=== PATIENT | male | born 1945 | race Caucasian/White ===

== ENCOUNTER 2023-10-27 06:33 | Day surgery (SDC) | payer OTHER, SELFPAY ==
[2023-10-27 08:20] VITALS: BMI 25.5
[2023-10-27 08:38] VITALS: BP 155/79
[2023-10-27 10:33] VITALS: BP 132/68
[2023-10-27 10:45] VITALS: BP 143/72
[2023-10-27 11:00] VITALS: BP 136/76
== END 2023-10-27 11:18 | disposition home or self-care (01) ==
LOC: GI 06:33
PROVIDERS: ATTENDING PHYSICIAN Internal Medicine Gastroenterology
DX: Z12.11 Encounter for screening for malignant neoplasm of colon (principal); D12.5 Benign neoplasm of sigmoid colon; K57.30 Diverticulosis of large intestine without perforation or abscess without bleeding; K64.8 Other hemorrhoids; R19.5 Other fecal abnormalities
CPT/HCPCS: 45380; 88305

== ENCOUNTER → 2024-06-18 10:42 | Outpatient (REF) | payer OTHER, SELFPAY | LOC: RAD 10:42 | PROVIDERS: ATTENDING PHYSICIAN Registered Nurse; FAMILY PHYSICIAN Internal Medicine Critical Care Medicine | DX: K59.00 Constipation, unspecified (principal); J44.9 Chronic obstructive pulmonary disease, unspecified | CPT/HCPCS: 71046; 74018 ==

== ENCOUNTER → 2024-09-14 08:38 | Outpatient (REF) | payer OTHER, SELFPAY | LOC: RAD 08:38 | PROVIDERS: ATTENDING PHYSICIAN Registered Nurse | DX: R10.11 Right upper quadrant pain (principal) | CPT/HCPCS: 74177; Q9967 ==

== ENCOUNTER 2024-10-29 16:49 | Inpatient (IN) | payer OTHER, SELFPAY ==
[2024-10-29] VITALS (8 sets, daily range): BP systolic 119–157; BP diastolic 57–78; BMI 24.4; BMI 24.1
[2024-10-29 12:24] LABS: Hematocrit 37.5 % (39.0-52.0); Hemoglobin 12.8 g/dL (13.0-18.0); Mean Corp Hgb Conc. 34.1 g/dL (33.0-37.0); Mean Corpuscular Hgb 28.8 pg (27.0-31.0); Mean Corpuscular Volume 84.5 fL (80.0-94.0); Mean Platelet Volume 8.3 fL (7.4-10.4); Platelet Count 415 10^3/uL (130-400); Red Blood Cell Count 4.44 10^6/uL (4.70-6.10); Red Cell Dist. Width 13.3 % (11.5-14.5)
[2024-10-29 12:28] LABS: ALT (SGPT) 23 U/L (0-50); AST (SGOT) 20 U/L (17-59); Alkaline Phosphatase 137 U/L (38-126); Blood Urea Nitrogen 15 mg/dl (9-20); Calcium 8.5 mg/dl (8.4-10.2); Carbon Dioxide 28 mmol/L (22-30); Chloride 91 mmol/L (98-107); Glucose 212 mg/dl (70-99); Potassium 4.5 mmol/L (3.5-5.1); Sodium 127 mmol/L (135-145); Total Bilirubin 1.1 mg/dl (0.2-1.3); Total Protein 5.9 g/dl (6.3-8.2); eGFR > 60.00
[2024-10-29 12:39] LABS: NT-proBNP 367 pg/ml; Troponin I < 0.012 ng/ml
[2024-10-29 12:58] LABS: % Basophils 0.3 % (0-2); % Lymphocytes 3.6 % (20.5-51.1); % Monocytes 3.6 % (1.7-9.3); % Neutrophils 91.5 % (42.2-75.2); Absolute Basophils 0.1 10^3/uL (0-0.2); Absolute Immature Granulocytes 0.2 10^3/uL (0-0.05); Absolute Lymphocytes 0.8 10^3/uL (1.2-3.4); Absolute Monocytes 0.8 10^3/uL (0.1-0.6); Absolute Neutrophils 20.1 10^3/uL (1.4-6.5); Nucleated Red Blood Cells % 0 % (-)
[2024-10-29] MEDS: DUONEB 3 ML INH ×2 (13:04→19:31)
--- NOTE | 2024-10-29 13:20 | ED.GENMED ---
History of Present Illness
General
Chief Complaint: Breathing Problem
Source: patient and spouse
Time Seen by Provider: 10/29/24 12:44
History of Present Illness
History of Present Illness:
79-year-old male with past medical history of COPD, CAD status postacute NC with CABG in March 2012, GERD, BPH presenting to the ER for evaluation after he started feeling short of breath 2 weeks ago, saw his primary care about 10 days ago who
started the patient on a steroid taper and antibiotics for presumed COPD exacerbation and states while he initially felt better for a couple of days over the last 48 to 72 hours he feels he has declined significantly. Patient states he has
continued cough that is nonproductive but wet sounding, fever this morning of 100.4 but did not take anything for the fever, no chest pain, abdominal pain, lower extremity edema or any other concerns. Patient states that he has oxygen at home but
is only using it as needed which she states he normally does not need to use. Social history was noted for former smoker but patient states has been many years since he did. Follows with crosstie inspector, Dr. Rodriguez.
Past History
Past History
ED Past Medical History: CAD, COPD, GERD, HTN, NC and Other (Sleep apnea, frequent urination, prostatic hypertrophy, arthritis, impaired vision, skin cancer.)
ED Past Surgical History: Cardiac, Urological and Other (Abdominal surgery for Meckel's diverticulum in 1999 he cornea transport 2008 skin cancer left cheek and 2008, CABG March 2012)
Social History
Tobacco: Former smoker
Alcohol: Occasional
Drug: None
Personal:
Living: with family
Employment: Retired
Review of Systems
Review of Systems
All Other Systems: ROS reviewed and negative except as documented in HPI and ROS
Phy Exam
Physical Exam
Physical Exam:
GENERAL: Alert , in no apparent distress
EYE: conjunctiva clear
NECK: Supple, no significant adenopathy.
ENT: o/p clr, mmm.
CARDIAC: Regular rate and rhythm
LUNGS: Rales bilateral bases, no wheezing, no acute respiratory distress, speaking full sentences, no accessory muscle use
NEUROLOGICAL: Alert and oriented
SKIN: Warm and dry, skin intact.
MUSCULOSKELETAL: well perfused. No edema
PSYCH: Normal and appropriate interaction.
Scores
Heart Failure Risk
Heart Failure Risk Score: Not Applicable
Heart Score for Chest Pain Patients
STEMI patient?: Not applicable
Withdrawal Assessment of Alcohol
Withdrawal Assessment Completed?: Not applicable
Course
Orders/Labs/Results
Orders:
Orders
10/29/24 11:44
Electrocardiogram (*1) Urgent
Reason for Study: Other
Other Reason for Exam: Respiratory Distress
Cardiac Monitoring- Treatment ONCE
EKG- Treatment ONCE
IV Insert/Care/Rem.- Treatment PRN
CR Chest - 2 Views Urgent
Comment:
Reason For Exam: respiratory distress
10/29/24 12:04
Complete Blood Count/With Diff Urgent
Comprehensive Metabolic Panel Urgent
NT-proBNP Urgent
Troponin I Urgent
10/29/24 12:50
Ipratropium/Albuterol Sulfate [Duoneb] 3 ml INH R NOW ONE
10/29/24 13:19
COVID-19 Antigen Urgent
Source: Nasal Swab
Lactic Acid Q4H
Comment: CANCEL 2nd LACTIC ACID IF 1st LACTIC ACID IS LESS THAN 2
Blood Culture Q30M
VINNY Source: Blood/Venous
Specimen Description:
Blood Culture Q30M
VINNY Source: Blood/Venous
Specimen Description:
Influenza A+B Rapid Molecular Urgent
VINNY Source: Nasal Swab
Specimen Description:
10/29/24 Dinner
Regular
At Your Request: Full Participation
Does patient need a safe tray?: No
10/29/24 15:21
Cefepime HCl [Maxipime] 2,000 mg IV NOW STA
10/29/24 16:05
Admit/Transfer Patient As Directed
Co-Sign Provider:
Level of Care: Inpatient admission
Assign to:: Medical/Surgical
Physician / Group: Lan Blair
Diagnosis: sepsis, pneumonia, hyponatremia
Reason for Hospitalization: sepsis, pneumonia, hyponatremia
Expected length of stay greater than two midnights?: Yes
ELOS- Estimated Length of Stay in days: 3
I certify the patient meets the requirements for IP care: Yes
10/29/24 16:06
PRN Pain Medication Management As Directed
May give lesser potent ordered pain med per pt: Yes
preference::
Protocol:: Medication orders for pain may be administered in a
manner that supports deferring to patient preference
when the pt is:
- Requesting an ordered lesser potent pain medication.
Least to most potent pain medications are defined
as: acetaminophen < NSAID < tramadol < opioids
(morphine, oxycodone, hydromorphone).
- Requesting a lesser dose of the same medication IF
ORDERED.
- Requesting a less intrusive route of administration
if both routes are prescribed by the provider (PO <
IV).
10/29/24 16:10
Code Status As Directed
Resuscitation Status: Full Code
10/29/24 16:14
Procalcitonin Urgent
PCT Algorithmm Indication: Respiratory
10/29/24 16:32
Legionella Urinary Antigen Urgent
VINNY Source: Urine
Specimen Description:
10/29/24 17:00
Lactic Acid Q4H
Comment: CANCEL 2nd LACTIC ACID IF 1st LACTIC ACID IS LESS THAN 2
10/29/24 18:15
0.9% Sodium Chloride 500 ml [Nss] 500 ml IV 40 mls/hr
Acetaminophen [Tylenol] 650 mg PO Q4HPRN PRN
Azithromycin [Zithromax] 250 mg PO MOWEFR
Calcium Carbonate [Oscal Celestine 500] 500 mg PO QPM
Cefepime HCl [Maxipime] 1,000 mg IV Q6H
Enoxaparin Sodium [Lovenox] 40 mg SC QPM
Ipratropium/Albuterol Sulfate [Duoneb] 3 ml INH R Q4HPRN PRN
Nitroglycerin Sublingual [Nitrostat (Sublingual)] 0.4 mg SL [id number] PRN
albuterol sulfate [ProAir RespiClick] 2 inh INH R Q4HPRN PRN
alpha lipoic acid 100 mg PO QPM
coenzyme Q10 [CoQ-10] 100 mg PO QPM
vanadyl 20 mg PO QPM
10/29/24 18:15
PULMONARY CONSULT Routine
Consulting Provider: Arash Mccrary
Was physician already notified: Yes
Respiratory Culture/Gram Stain Urgent
VINNY Source: Sputum
Specimen Description:
Activity As Directed
Activity Level: Out of Bed-Early Mobility
Intake/ Output As Directed
Frequency: Per unit guidelines
Vital Signs As Directed
Frequency: Per unit guidelines
Weight As Directed
Frequency: Once
Comment: on admission
Cpap [RESP] Routine
Patient to use own unit?: No
Set Pressure (cm H2O): 5
Instructions: HS & PRN
titrate settings as needed
O2 Therapy [RESP] Routine
Titrate/Wean O2 to maintain O2 sat greater than (%): 93
Special Instructions: Wean as tolerated
Pt Eval And Treat Routine
Activity Level: Out of Bed-Early Mobility
DX Deep Vein Thrombosis Video Routine
10/29/24 20:00
Albuterol Nebs [Ventolin Nebules] 2.5 mg INH R BID
Doxycycline [Vibramycin] 100 mg PO BID
Guaifenesin [Mucinex] 1,200 mg PO Q12
Ipratropium/Albuterol Sulfate [Duoneb] 3 ml INH R QID
Sodium Chloride 3% INH [Sodium Chloride 3% For Inhalation] DOSE vial INH R BID
10/30/24 06:00
Basic Metabolic Panel IN AM
Complete Blood Count/No Diff IN AM
10/30/24 08:00
Aspirin Low Dose EC [Aspir Low (Enteric Coated)] 81 mg PO DAILY
Atorvastatin [Lipitor] 40 mg PO DAILY
Budesonide [Pulmicort] 0.5 mg INH R DAILY
Fluorometholone [Fml 0.1% Ophthalmic Suspension] 1 drop BOTH EYES DAILY
Metoprolol Xl [Toprol Xl] 25 mg PO DAILY
Pantoprazole [Protonix] 40 mg PO DAILY
Prednisone [Deltasone] 10 mg PO DAILY
fluticasone propion-salmeterol 1 inh INH DAILY
tiotropium bromide [Spiriva Respimat] 1 puff INH R DAILY
Abnormal Lab Results
10/29/24
12:04
WBC 22.0 H 10^3/uL
(4.8-10.8)
RBC 4.44 L 10^6/uL
(4.70-6.10)
Hgb 12.8 L g/dL
(13.0-18.0)
Hct 37.5 L %
(39.0-52.0)
Plt Count 415 H 10^3/uL
(130-400)
Abs Immat Gran (auto) 0.2 H 10^3/uL
(0-0.05)
Absolute Neuts (auto) 20.1 H 10^3/uL
(1.4-6.5)
Absolute Lymphs (auto) 0.8 L 10^3/uL
(1.2-3.4)
Absolute Monos (auto) 0.8 H 10^3/uL
(0.1-0.6)
Immature Gran % 1.0 H %
(0-0.5)
Neutrophils % 91.5 H %
(42.2-75.2)
Lymphocytes % 3.6 L %
(20.5-51.1)
Sodium 127 L mmol/L
(135-145)
Chloride 91 L mmol/L
(98-107)
Glucose 212 H mg/dl
(70-99)
Alkaline Phosphatase 137 H U/L
(38-126)
Total Protein 5.9 L g/dl
(6.3-8.2)
Albumin 3.0 L g/dl
(3.5-5.0)
10/29/24 12:04
10/29/24 12:04
Vital Signs
Initial and Last Documented VS:
Initial Vital Signs
Temp Pulse Resp BP Pulse Ox
97.8 F 110 26 157/68 89
10/29/24 11:50 10/29/24 11:50 10/29/24 11:50 10/29/24 11:50 10/29/24 11:50
Last Documented Vital Signs
Temp Pulse Resp BP Pulse Ox
97.7 F 86 20 146/69 93
10/29/24 18:16 10/29/24 18:16 10/29/24 18:16 10/29/24 18:16 10/29/24 18:24
MDM/Problems Addressed
Differential Diagnosis Includes:
asthma/COPD, pneumonia, bronchitis, flu/covid, CHF
MDM/Problems Addressed:
79-year-old male presenting the ER for evaluation of increased respiratory difficulty over the last 2 weeks, initial mild improvement with steroid taper and antibiotics however symptoms returned and worsened over the last 72 hours. On arrival to
the ER patient was found to be hypoxic and placed on 2 L via nasal cannula and had good response with oxygen to the mid 90s and reports symptomatic relief. Labs were also initiated on arrival which show a leukocytosis of 22,000 which could
potentially be related to recent steroid use however there is a leftward shift. Patient has a mild hyponatremia so we will add on a Legionella antigen to assess for possible legionnaires. Chest x-ray ordered. Will treat patient with a DuoNeb and
plan for possible steroid and antibiotic for further treatment. Anticipate admission given failed outpatient treatment.
Chronic conditions affecting care: COPD
Acute Exacerbation and/or Progression of Chronic Illness: COPD
*Radiology
Radiology exam reviewed: preliminary read by ED provider (Right lower lobe pneumonia)
*Pulse Oximetry
Patient hypoxic: yes
*EKG
Heart Rate: 113
Rate: tachycardiac
Rhythm: sinus
Urich: left axis deviation
QRS Pattern: left bundle branch block and right bundle branch block
*Rod Drawer Interpretation
Rate: tachycardiac
Rhythm: sinus
*Critical Care Note
Total Time (30-74mins, 75-104mins- exclusive of procedures): Not Applicable
Data Reviewed
Review of Other/Old Records Reveals: Records and Testing
Patient Management
Discussion with other providers: Hospitalist
Escalation/DeEscalation of care consider admission/obs:
Patient's chest x-ray shows bilateral lower lung pneumonia. Given his failed outpatient treatment combined with now mild hypoxia and continued respiratory complications will admit for continued respiratory support as well as IV antibiotics. Given
patient's chronic medical conditions will initiate him on Maxipime. Hospitalist team aware and accepts for continued evaluation and treatment.
ED Attending Note
-
Portions of this chart may have been created with voice recognition software.� Occasional wrong word or��sound alike� substitutions may have occurred due to the inherent limitations of voice recognition software.
Discharge Plan
Departure
Patient Disposition: Admit
Date of Disposition: 10/29/24
Time of Disposition: 15:23
Presentation/result/management discussed w/ accepting MD/DO: Hospitalist
Discharge Problem:
Pneumonia, Acute exacerbation of chronic obstructive pulmonary disease
Interventions
Interventions:
*Risk Screen - Suicide Last Done: 10/29/24 11:50
*General Assessment Last Done: 10/29/24 16:22
*Neglect/Abuse Screening Last Done: 10/29/24 11:50
*ED- Fall Risk Assessment Last Done: 10/29/24 16:22
*ED COVID-19 Vaccine History Last Done: 10/29/24 16:22
*Nursing Disposition Last Done: 10/29/24 18:24
ED- Cardiac Assessment Last Done: 10/29/24 17:23
ED- Pulmonary Assessment Last Done: 10/29/24 17:23
Discharge Date and Time
Discharge Date/Time: 10/29/24 18:24
[2024-10-29 13:46] LABS: Lactic Acid 1.3 mmol/L (0.7-2.0)
[2024-10-29 13:53] LABS: COVID-19 Antigen Negative (Negative)
--- NOTE | 2024-10-29 15:25 | HPS.HSE ---
Family Physician
-
Family Physician:
Chief Complaint
-
cough and shortness of breath
History of Present Illness
Patient is a 79-year-old male with past medical history significant for COPD, bronchiectasis, ASCVD, hyperlipidemia, essential hypertension, pulmonary hypertension, sleep apnea and GERD who presented to [facility] ED for evaluation of
prolonged cough with increased shortness of breath. Patient reports symptoms started approximately 10 days ago or so and he felt it was similar to a COPD exacerbation that he has had in the past. He contacted his finisher brush and was prescribed a
12-day prednisone taper, last dose due tomorrow and 5 days of doxycycline. He reports initially feeling slightly better but yesterday felt lousy and last night he stated he felt 'terrible.' Patient reports productive cough, shortness of breath and
decreased SpO2 requiring oxygen. Patient does have oxygen in the home for PRN use but hardly needs it. He reports the past few days his SpO2 has been upper 80s and has been needing the oxygen. Patient reports known fever today at 100.4. Denies any
chills, chest pain, nausea, vomiting, constipation, diarrhea or urinary symptoms.
Medical History
Past Medical History
Past Medical History: Reports Other
Additional Past Medical History:
COPD
bronchiectasis
ASCVD
hyperlipidemia
essential hypertension
pulmonary hypertension
sleep apnea
GERD
Past Surgical History: Reports Other
Additional Past Surgical History:
TURP 2015
Cath w/Stent LAD Cx 01/2012
CABG x 1 (L Saph [place]) 2011
Corneal Transplant (Bilateral) 2011
Meckels diverticulum surgery 1964
Exploratory Laparotomy (Diverticular disease) w/ Appendectomy 1964
Moh's surgery x6
Social History
Tobacco: Former Smoker
Alcohol: None
Drug: None
Personal:
Living: With Family
Employment: Retired
Family History
Family History: Other (Father: COPD )
Allergies / Home Medications
Allergies reflects when Allergies were last updated in [employer].
Home Medications with original date entered in [employer]
Allergy/Medication List:
Allergies
Allergy/AdvReac Type Severity Reaction Status Date / Time
Sulfite Derivativ Allergy Shortness Verified 10/29/24 11:51
*RETIRED-04/21/12 of Breath
[Sulfite Derivatives]
SULFIDES Allergy BREATHING Uncoded 10/29/24 11:51
PROBLEMS
Home Medications
metoprolol succinate 25 mg tablet,extended release 24 hr 25 mg PO DAILY Blood pressure 10/21/14
pantoprazole 40 mg tablet,delayed release 40 mg PO DAILY Gastrointestinal issue 01/18/16
albuterol sulfate 2.5 mg/3 mL (0.083 %) solution for nebulization 2.5 mg inhalation R BID Lung/breathing issues 10/08/22
nitroglycerin 0.4 mg sublingual tablet 0.4 mg sublingual [id number] PRN chest pain 10/08/22
omega 0-tmc-fkh-fish oil 1,000 mg (120 mg-180 mg) capsule (Fish Oil) 1 cap PO QPM Supplement 10/08/22
aspirin 81 mg tablet,delayed release 81 mg PO DAILY #30 tabs 10/11/22
budesonide 0.5 mg/2 mL suspension for nebulization 0.5 mg inhalation R DAILY 10/27/23
Reservatrol 1 cap PO QPM 10/29/24
albuterol sulfate 90 mcg/actuation breath activated powder inhaler (ProAir RespiClick) 2 inh inhalation R Q4HPRN PRN SOB 10/29/24
alpha lipoic acid 100 mg capsule 100 mg PO QPM 10/29/24
atorvastatin 40 mg tablet 40 mg PO DAILY 10/29/24
azithromycin 250 mg tablet 250 mg PO MOWEFR 10/29/24
bromelains 100 mg chewable tablet 200 mg PO QPM 10/29/24
calcium carbonate 500 mg PO QPM 10/29/24
coenzyme Q10 100 mg capsule (CoQ-10) 100 mg PO QPM 10/29/24
fluorometholone 0.1 % eye drops,suspension 1 drp BOTH EYES DAILY 10/29/24
fluticasone 250 mcg-salmeterol 50 mcg/dose blistr powdr for inhalation 1 inh inhalation DAILY 10/29/24
losartan 50 mg-hydrochlorothiazide 12.5 mg tablet 1 tab PO DAILY 10/29/24
prednisone 10 mg tablet 10 mg PO DAILY 10/29/24
quercetin 500 mg capsule 500 mg PO QPM 10/29/24
sodium chloride 3 % for nebulization (NebuSal) 4 ml inhalation R BID 10/29/24
therapeutic multivitamin 1 tab PO QPM 10/29/24
tiotropium bromide 1.25 mcg/actuation mist for inhalation (Spiriva Respimat) 1 puff inhalation R DAILY 10/29/24
vanadyl 10 mg tablet 20 mg PO QPM 10/29/24
Review of Systems
-
History Source: Patient
Constitutional: Reports Fever
EENT: Reports No Symptoms
Respiratory: Reports Cough and Trouble Breathing
Cardiac: Reports No Symptoms
Abdomen/GI: Reports No Symptoms
: Reports No Symptoms
Musculoskeletal: Reports No Symptoms
Skin: Reports No Symptoms
Neurological: Reports No Symptoms
Endocrine: Reports No Symptoms
Hematologic/Lymphatic: Reports No Symptoms
Psych: Reports No Symptoms
Physical Exam
Vital Signs
Vital Signs
Temp Pulse Resp BP Pulse Ox
97.8 F 110 26 157/68 89
10/29/24 11:50 10/29/24 11:50 10/29/24 11:50 10/29/24 11:50 10/29/24 11:50
Physical Exam
General: Well Developed, Well Nourished, No Apparent Distress, Comfortable and Conversant
HEENT: NormoCephalic, Moist mucous membranes, Atraumatic, [place] Conjunctivae, Nose Appears Normal and Ears Appear Normal
Respiratory: Rhonchi and Non Labored Respirations
Cardiac: S1/S2, Regular Rhythm and Tachycardia; No Murmur, Rub or Gallop
Breast: Deferred by me
GI: Soft, Non Tender, Non Distended and Normal Bowel Sounds; No Organomegaly
Rectal: Deferred by Provider
Genito-urinary: Deferred by me
Musculoskeletal: No Clubbing, No Cyanosis and No Edema
Skin: Warm and IV/Catheter Site
Neuro: Awake, Alert, AO x 3 and Nonfocal/grossly intact
Psych: Calm and Intact Judgment/Insight
Laboratory Results
-
10/29/24 12:04
10/29/24 12:04
Laboratory Results
Lactic Acid 1.3 mmol/L (0.7-2.0) 10/29/24 13:19
Total Bilirubin 1.1 mg/dl (0.2-1.3) 10/29/24 12:04
AST 20 U/L (17-59) 10/29/24 12:04
ALT 23 U/L (0-50) 10/29/24 12:04
Alkaline Phosphatase 137 U/L (38-126) H 10/29/24 12:04
Troponin I < 0.012 ng/ml 10/29/24 12:04
Data Reviewed
-
Medical Tests (Nuc Med, Echo, EKG etc): Report Reviewed by me (EKG: SINUS TACHYCARDIA LEFT AXIS DEVIATION RIGHT BUNDLE BRANCH BLOCK)
Lab Data: Labs Reviewed by me (WBC 22.0, Neut 91.5, NA 127)
Impression/Plan
-
IMPRESSION/PLAN:
#sepsis 2/2 pneumonia
WBC 22.0, Neut 91.5
Covid: negative
Influenza: negative
CXR: Interval increase in bilateral lower lobe parenchymal airspace opacity, suggesting pneumonia. These findings are superimposed on changes of chronic bronchitis with bronchiectasis and diffuse bronchial wall
thickening seen on CT scan of September 14, 2024.
No evidence for associated pleural effusion.
Blood Cx: pending
Procal: pending
- Admit to telemetry
- Consult pulmonology
- IV antibiotics
- DuoNeb QID and PRN
- Mucinex BID
#hyponatremia
NA 127
- stop HCTZ
- NSS 40cc/hr for 500cc
- monitor BMP
#COPD
#bronchiectasis
- continue home HFA and neb regimen
- continue prednisone
#ASCVD
s/p CABG
- continue aspirin
#hyperlipidemia
- continue atorvastatin
#essential hypertension
- continue losartan and metoprolol
- stop HCTZ
#GERD
- continue pantoprazole
#sleep apnea
- CPAP at HS
#pulmonary hypertension
Code status: full code
DVT prophylaxis: Lovenox Sq
--- NOTE | 2024-10-29 15:53 | W.PN.UPDATE ---
Update Note
Progress Note Update
This note serves as an addendum to the H&P by hand cloth folder CHRISTOS Claudia Alvarez
HPI
79M Former smoker HX COPD, on PRN home O2, HTN, OH, CABG, CHELSEY , Hyponatremia, BPH impaired vision seen at [facility] for SoB
- SoB
- 10 days ago PCP started the patient on a steroid taper and antibiotics for presumed COPD exacerbation
- initially felt better for a couple of days over the last 48 to 72 hours he feels he has declined significantly
- Persistent nonproductive but wet sounding
- fever this morning of 100.4 but did not take anything for the fever
- Known to Dr Rodriguez
ROS
no chest pain, abdominal pain, lower extremity edema or any other concerns.
PHX; as above
VS
10/27/23
08:38
Temp 98.0 F
Temp route: Temporal
Pulse 80
Resp Rate 16
Blood pressure 155/79
SaO2 95
Oxygen Mode of Delivery Room air
PE
Gen: NAD , no acute respiratory distress, speaking full sentences,
HEENT: anicteric
Neck: supple
Lungs:
Rales bilateral bases
no wheezing
no accessory muscle use
Cor: RRR S1 S2
Abdomen: soft benign exam
OIL BOILER: AAO3 NFND
MS: no edema
Psych: appropriate
Labs
10/11/22 08/08/23 10/29/24
09:34 15:31 12:04
WBC 22.0 H
Hgb 13.4 12.8 L
Plt Count 252 415 H
Sodium 130 L 130 L 127 L
Potassium 4.5
Chloride 91 L
Creatinine 0.7
eGFR > 60.00
Glucose 212 H
Lactic Acid Pending
Troponin I < 0.012
[id number] Pept 367
Albumin 3.0 L
Procalcitonin pending
Pending Legion Ag
NEG flu A & B
NEG Covid
Pending CXR report
10/11/22 TTE
Normal biventricular size and systolic function without regional wall motion abnormality.
No significant valvular disease.
No significant change since the prior study of 11/12/21.
Last hospitalist admission: 10/08/22 - 10/11/22
DC DXs
Acute hypoxic respiratory insufficiency
Bilateral basilar pneumonia
Bronchiectasis
Hyponatremia, we stopped hydrochlorothiazide.
ASSESSMENT & PLAN
PNA failed outpatient PO ABx with break through fever
Currently not bronchospastic : Recent COPD flare on tapering PO Prednisone- last dos tomorrow
Acute hypoxic RI but stable on 2L
On Home O2 only PRN basis
Known to Dr Rodriguez
- NEG flu A & B
- NEG Covid
- Pending Legion Ag
- BCx sent
- check PCT
- f/u final CXR report
- Agree with IV CFP , cont. OP PO Doxy
- c/w PO Prednisone taper as plan by OP
- add DuoNeb qid and PRN
- Mucinex 1200mg BID
- c/w all OP Resp Meds;
- supplemental O2 PRN to keep POx > 94 %
- Pul consult
Leucocytosis
Suspect leukemoid reaction to PO Prednisone
- f/u BCx
- Trend WCC and T curve
Acute on chr hyponatremia with hypochloremia
Element of pseudohyponatremia - corrected Na 129 for BG 212
Baseline Na 130
- Hold HCTZ combo pill
- c/w DIRECTOR IN[employer]OR [employer]ATIONS Losartan
- IV NS 40/H for 500 cc and observe Na then FR 1200 cc daily
Benign HTN
- c/w Losartan
- c/w Metoprolol XL
HLD
- c/w [employer] ASA and Atorvastatin
DVT Px: LMWH
Full code
IP MS
[2024-10-29] MEDS: MAXIPIME 2000 MG IV (16:16)
[2024-10-29 17:40] LABS: Procalcitonin 0.16 ng/ml (0.0-0.25)
[2024-10-29] MEDS: SODIUM CHLORIDE 3% FOR INHALATION 1 VIAL INH (19:31)
[2024-10-29] MEDS: ADVAIR HFA 115/21 MCG INHALER 2 PUFF INH (19:31)
[2024-10-29] MEDS: MUCINEX 1200 MG PO (19:42)
[2024-10-29] MEDS: NSS 500 IV (19:42)
[2024-10-29] MEDS: OSCAL CAL 500 500 MG PO (19:42)
[2024-10-29] MEDS: LOVENOX 40 MG SC (19:42)
[2024-10-29] MEDS: VIBRAMYCIN 100 MG PO (19:43)
[2024-10-29] MEDS: TESSALON PERLES 100 MG PO (22:00)
[2024-10-29] MEDS: STERILE WATER FOR INJECTION 10 ML IV (22:00)
[2024-10-29] MEDS: MAXIPIME 1000 MG IV (22:00)
[2024-10-30] MEDS: TESSALON PERLES 100 MG PO (02:07)
[2024-10-30] MEDS: MELATONIN 5 MG PO (02:07)
[2024-10-30] MEDS: MAXIPIME 1000 MG IV ×4 (04:21→23:09)
[2024-10-30] MEDS: STERILE WATER FOR INJECTION 10 ML IV ×4 (04:21→23:10)
[2024-10-30] MEDS: TYLENOL 650 MG PO (04:30)
[2024-10-30 07:11] LABS: Hematocrit 33.2 % (39.0-52.0); Hemoglobin 11.7 g/dL (13.0-18.0); Mean Corp Hgb Conc. 35.2 g/dL (33.0-37.0); Mean Corpuscular Hgb 29.9 pg (27.0-31.0); Mean Corpuscular Volume 84.9 fL (80.0-94.0); Mean Platelet Volume 8.4 fL (7.4-10.4); Platelet Count 371 10^3/uL (130-400); Red Blood Cell Count 3.91 10^6/uL (4.70-6.10); Red Cell Dist. Width 13.4 % (11.5-14.5); White Blood Cell Count 18.8 10^3/uL (4.8-10.8)
[2024-10-30 07:36] LABS: Blood Urea Nitrogen 19 mg/dl (9-20); Calcium 8.5 mg/dl (8.4-10.2); Carbon Dioxide 26 mmol/L (22-30); Chloride 95 mmol/L (98-107); Estimated Creatinine Clearance 101 ml/min; Glucose 124 mg/dl (70-99); Potassium 4.1 mmol/L (3.5-5.1); Sodium 129 mmol/L (135-145); eGFR > 60.00
[2024-10-30] MEDS: DUONEB 3 ML INH ×4 (07:46→20:50)
[2024-10-30] MEDS: ADVAIR HFA 115/21 MCG INHALER 2 PUFF INH ×2 (07:46→20:50)
[2024-10-30] MEDS: PULMICORT 0.5 MG INH ×2 (07:46→20:50)
[2024-10-30] MEDS: SODIUM CHLORIDE 3% FOR INHALATION 1 VIAL INH ×2 (07:46→20:55)
[2024-10-30 08:16] VITALS: BP 135/64
[2024-10-30] MEDS: MUCINEX 1200 MG PO ×2 (09:03→19:33)
[2024-10-30] MEDS: ASPIR LOW (ENTERIC COATED) 81 MG PO (09:03)
[2024-10-30] MEDS: TOPROL XL 25 MG PO (09:03)
[2024-10-30] MEDS: VIBRAMYCIN 100 MG PO ×2 (09:03→19:33)
[2024-10-30] MEDS: LIPITOR 40 MG PO (09:03)
[2024-10-30] MEDS: DELTASONE 10 MG PO (09:03)
[2024-10-30] MEDS: PROTONIX 40 MG PO (09:03)
[2024-10-30] MEDS: FML 0.1% OPHTHALMIC SUSPENSION 1 DROP BOTH EYES (09:04)
--- NOTE | 2024-10-30 11:07 | W.PN.HOSP.TC ---
Today's Communication/Plan
-
await further culture data
cont w/bronchodilators
cont prednisone
Pulm eval
Assessment / Plan
Assessment / Plan
#sepsis 2/2 pneumonia viral vs. bacterial
COVID and influenza and legionella negative
CXR: Interval increase in bilateral lower lobe parenchymal airspace opacity, suggesting pneumonia. These findings are superimposed on changes of chronic bronchitis with bronchiectasis and diffuse bronchial wall
thickening seen on CT scan of September 14, 2024.
No evidence for associated pleural effusion.
Blood Cx in lab
Procal low at 0.16
- Consult pulmonology as known to them
- Cont IV antibiotics for 24h and can probably descalate if cultures remains negative
- DuoNeb QID and PRN
- Mucinex BID
#hyponatremia
NA 127
- stop HCTZ
- improving
#Leukomoid reaction due to prednisone
#COPD
#bronchiectasis
- continue home HFA and neb regimen
- continue prednisone
#ASCVD
s/p CABG
- continue aspirin
#hyperlipidemia
- continue atorvastatin
#essential hypertension
- continue losartan and metoprolol
- stop HCTZ
#GERD
- continue pantoprazole
#sleep apnea
- CPAP at HS
#pulmonary hypertension
Code status: full code
DVT prophylaxis: Lovenox Sq
Anticipated Discharge: > 48 hours
Subjective/Interval History
-
Date of Service: October 30, 2024
states of persistent sob
states of dry cough
Objective Data
-
Labs:
Laboratory Results
10/30/24
06:45
WBC 18.8 H
Hgb 11.7 L
Hct 33.2 L
Plt Count 371
Sodium 129 L
Potassium 4.1
Chloride 95 L
Carbon Dioxide 26
BUN 19
Creatinine 0.6 L
Glucose 124 H
Calcium 8.5
Vital Signs:
Vital Signs
Temp Pulse Resp BP Pulse Ox
97.5 F 87 18 135/64 95
10/30/24 08:16 10/30/24 09:03 10/30/24 08:16 10/30/24 09:03 10/30/24 08:16
I&O
10/29/24 10/30/24 10/31/24
06:59 06:59 06:59
Intake Total 980 / 980 480 / 480
Balance 980 / 980 480 / 480
Physical Exam
-
General: Well Developed and No Apparent Distress
HEENT: Normocephalic, Atraumatic and Moist Mucous Membranes
Respiratory: Decreased Breath Sounds
Cardiac: Regular Rhythm and S1/S2; Negative Murmur, Rub or Gallop
GI: Soft, Nontender, Nondistended and Normal Bowel Sounds; Negative Organomegaly
Rectal: Deferred by Provider
Musculoskeletal: No Clubbing, No Cyanosis and No Edema
Skin: Negative Rash
Neuro: Awake, No Motor Deficits and Nonfocal/Grossly Intact
Psych: Calm
[2024-10-30 11:56] VITALS: BP 129/69; BP 139/66; PULSE 95; O2SAT 91
--- NOTE | 2024-10-30 13:30 | CON.PUL ---
Consultation
Consultation Request
Date/Time Consultation Requested: 10/29/2024 - 1814
Date/Time Consultation Performed: 10/30/2024 - 1220
Requesting Provider: LEON Bear
Performing Provider: Dr. Helton
Reason for Consultation: SOB/Hx of bronchiectasis
Medical History
-
Chief Complaint: SOB
History of Present Illness:
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
surgery, history of pneumonia, and history of Amaya's esophagus with Schatzki's ring and hiatal hernia who presents with shortness of breath. He says that he has been more short of breath since around the middle of October (approximately
10/16/2024). He went to [facility] office and saw LEON Douglass on 10/19/2024. At that time, he was on Advair, Spiriva, 3% saline, nebulized albuterol, budesonide and Acapella. He was told to raise his budesonide + albuterol to twice a day. He
also uses vest therapy and was encouraged to use twice daily instead of once. He was more short of breath with worsening mucus production at that office visit on 10/19/2024 and was given a course of doxycycline with a prednisone taper.
Unfortunately his symptoms progressed and that is why he came here to ER. In the ER, he was afebrile to 97.8 �F, pulse rate 110, respiratory rate 26, BP 157/68 and he was saturating 89% on room air. Saturations proved to the mid 90s on 2 L/min
nasal cannula. Of note he does use oxygen at home as needed, usually 3 L/min. Labs showed leukocytosis of 22, Hb 12.8, sodium 127, glucose 212, proBNP 367 and negative troponin X1. Procalcitonin was WNL at 0.16 and COVID-19 antigen negative. CXR
showed worsening bibasilar opacification concerning for an superimposed pneumonia. Blood cultures were collected and flu swab A & B were both negative. CXR showed increased bilateral lower lobe parenchymal airspace opacities suggestive of
pneumonia. He was given cefepime in the ER + Gokul and admitted to the hospitalist service. Pulmonary now consulted given his shortness of breath with pneumonia given his history of severe COPD with bronchiectasis/chronic bronchitis.
He follows with us in the [facility] office with Dr. Rodriguez - last visit with Dr. Rodriguez on 06/16/2024. His last CT chest was in October 2020 (PE study) which showed moderate stable bronchiectasis throughout the lower lobes with no superimposed acute
abnormalities. He was told to continue his auto CPAP. He is also on home oxygen at 4 L/min using as needed. He was started on 3 times weekly Zithromax in April 2024. Recommend to come back to the office in 4 to 6 weeks (scheduled for
11/23/2024).
PMHx: CHELSEY on BiPAP, severe COPD with chronic bronchitis + bronchiectasis, GERD, chronic rhinitis, lung nodules, pulmonary hypertension, history of SC s/p CABG with prior stenting to LAD, hypertension, hyperlipidemia, history of Amaya's esophagus
with Schatzki's ring and hiatal hernia, basal cell carcinoma of the skin, Meckel's diverticulum (1964), history of pneumonia
PSHx: TURP (2016), coronary stent to LAD (01/2012), CABG X1 (left saphenous vein harvest � 2011), corneal transplant (bilateral � 2011), Meckel's diverticulum surgery (1964), exploratory laparotomy due to diverticular disease with appendectomy
(1964), Mohs procedure x 6
Past Medical History
Past Medical History: Other (Above as per HPI)
Past Surgical History: Other (Above as per HPI)
Social History
Tobacco: Former Smoker (Quit in 2011 with 09-chiy-ghhe history)
Alcohol: Other (Rare use)
Drug: None
Personal:
Living: With Family
Family History
Family History: Cancer (Father: Lymphoma) and Other (Father: Colon polyp; mother: Glaucoma)
Allergies / Home Medications
Allergies
Allergy/AdvReac Type Severity Reaction Status Date / Time
sulfite Allergy SOB- Verified 10/29/24 18:19
SULFITES
IN WINE
Home Medications
�Medication �Instructions �Recorded �Confirmed �Last Taken �Type
metoprolol succinate 25 mg 25 mg PO DAILY Blood pressure 10/21/14 10/29/24 10/29/24 History
tablet,extended release 24 hr
pantoprazole 40 mg tablet,delayed 40 mg PO DAILY Gastrointestinal 01/18/16 10/29/24 10/29/24 History
release issue
albuterol sulfate 2.5 mg/3 mL 2.5 mg inhalation R BID 10/08/22 10/29/24 10/29/24 History
(0.083 %) solution for nebulization Lung/breathing issues
nitroglycerin 0.4 mg sublingual 0.4 mg sublingual [id number] PRN 10/08/22 10/29/24 Unknown History
tablet chest pain
omega 3-ost-tff-fish oil 1,000 mg 1 cap PO QPM Supplement 10/08/22 10/29/24 10/28/24 History
(120 mg-180 mg) capsule (Fish Oil)
aspirin 81 mg tablet,delayed 81 mg PO DAILY #30 tabs 10/11/22 10/29/24 10/29/24 Rx
release
budesonide 0.5 mg/2 mL suspension 0.5 mg inhalation R DAILY 10/27/23 10/29/24 10/29/24 History
for nebulization
Reservatrol 1 cap PO QPM 10/29/24 10/29/24 10/28/24 History
albuterol sulfate 90 mcg/actuation 2 inh inhalation R Q4HPRN PRN SOB 10/29/24 10/29/24 Unknown History
breath activated powder inhaler
(ProAir RespiClick)
alpha lipoic acid 100 mg capsule 100 mg PO QPM 10/29/24 10/29/24 10/28/24 History
atorvastatin 40 mg tablet 40 mg PO DAILY 10/29/24 10/29/24 10/29/24 History
azithromycin 250 mg tablet 250 mg PO MOWEFR 10/29/24 10/29/24 10/29/24 History
bromelains 100 mg chewable tablet 200 mg PO QPM 10/29/24 10/29/24 10/28/24 History
calcium carbonate 500 mg PO QPM 10/29/24 10/29/24 10/28/24 History
coenzyme Q10 100 mg capsule 100 mg PO QPM 10/29/24 10/29/24 10/28/24 History
(CoQ-10)
fluorometholone 0.1 % eye 1 drp BOTH EYES DAILY 10/29/24 10/29/24 10/29/24 History
drops,suspension
fluticasone 250 mcg-salmeterol 50 1 inh inhalation DAILY 10/29/24 10/29/24 10/29/24 History
mcg/dose blistr powdr for
inhalation
losartan 50 mg-hydrochlorothiazide 1 tab PO DAILY 10/29/24 10/29/24 10/29/24 History
12.5 mg tablet
prednisone 10 mg tablet 10 mg PO DAILY 10/29/24 10/29/24 10/29/24 History
quercetin 500 mg capsule 500 mg PO QPM 10/29/24 10/29/24 10/28/24 History
sodium chloride 3 % for 4 ml inhalation R BID 10/29/24 10/29/24 10/29/24 History
nebulization (NebuSal)
therapeutic multivitamin 1 tab PO QPM 10/29/24 10/29/24 10/28/24 History
tiotropium bromide 1.25 1 puff inhalation R DAILY 10/29/24 10/29/24 10/29/24 History
mcg/actuation mist for inhalation
(Spiriva Respimat)
vanadyl 10 mg tablet 20 mg PO QPM 10/29/24 10/29/24 10/28/24 History
diphenhydramine 25 1 tab PRN insomnia 10/30/24 Unknown History
mg-acetaminophen 500 mg tablet
(Tylenol PM Extra Strength)
Review of Systems
-
History Source: Patient
All other systems: Negative unless noted
Vitals / Labs / Diagnostic Testing
Vital Signs
Temp Pulse Resp BP Pulse Ox
99.9 F 89 16 137/72 96
10/29/24 23:50 10/29/24 23:50 10/29/24 23:50 10/29/24 23:50 10/29/24 23:50
Lab Data
10/30/24 06:45
10/30/24 06:45
Microbiology
10/29/24 16:32 Urine Legionella Urinary Antigen - Final
Negative for Legionella pneumophila Serogroup 1 antigen.
A negative result does not rule out the possiblity of
Legionella infection due to other serogroups or species of
Legionella. Clinical correlation is recommended.
10/29/24 13:19 Nasal Swab Influenza Types A & B (KWAME) - Final
Negative for Influenza A & B, NAAT
Negative results must be combined with clinical observations
and patient history.
Nucleic Acid Amplification test (NAAT)performed on the
in2nite ID NOW platform.
Diagnostic Testing:
Physical Exam
-
HEENT: Normocephalic and Anicteric
Cardiovascular: S1/S2 and Peripheral Edema (Trace lower extremity edema bilaterally)
Respiratory: Wheeze (negative), Rales (negative), Rhonchi (Bilaterally mainly in the lower to middle lobes) and Non-Labored Respirations
GI: Soft, Non Distended, Non Tender and Normal Bowel Sounds
Neurology: AO x 3 and Tremors (negative)
Skin: Warm and Dry
General: Respiratory Distress (negative), Comfortable, Fever (negative) and Chills (negative)
Assessment
-
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
surgery, history of pneumonia, and history of Amaya's esophagus with Schatzki's ring and hiatal hernia who presents with shortness of breath. He has been having shortness of breath with increased mucus production since 10/16/2024. Saw pulmonary
in the office on 10/19/2024, with adjustments of his inhalers + vest therapy instructions, and also given a course of doxycycline + prednisone taper. He unfortunately continued to worsen after a few days and then came here to the ER where he was
found to have a lower lobe pneumonia. Antibiotics were started and he was admitted to the hospitalist service, and pulmonary is now consulted for additional management/recommendations.
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
Amaya's esophagus with Schatzki's ring and hiatal hernia, basal cell carcinoma of the skin, Meckel's diverticulum (1964), history of pneumonia
Impression:
#Bilateral pneumonia with a bronchiectasis flare
#Acute COPD exacerbation
#Acute on chronic respiratory failure with hypoxia due to above
#Leukocytosis due to sepsis from pneumonia
#Acute on chronic anemia (baseline Hb 13�14g/dL)
#Chronic hyponatremia
#History of GERD with Schatzki's ring and hiatal hernia
#History of CHELSEY on BiPAP 12/8 cmH2O
#Severe COPD with chronic bronchitis and bronchiectasis (PFT from 02/07/2021 showed a severe obstructive lung defect with significant bronchodilator response, moderate restriction with severe gas exchange capacity defect (DLco: 31%; DLco/VA: 56%; most
recent spirometry from 10/19/2024 shows a mixed severe obstructive lung defect with severe restriction with significant BD response)
#Moderate restrictive lung defect (T% predicted, VC: 54% predicted via PFTs from 02/07/2021)
#Former tobacco use with mild centrilobular emphysema predominantly in the upper lobe
#CAD s/p stenting to LAD + CABG
#Former tobacco smoker (quit in 2011 with 68-[id number]-nbfz history)
Plan:
- Based on CXR from 10/21/2024, it appears that his bibasilar chronic bronchitis/opacification has worsened suspicious for a superimposed pneumonia. He also has significant leukocytosis although his procalcitonin is WNL at 0.16 from 10/29/2024
- Agree with continued antibiotics with cefepime + doxycycline; please hold his usual Zithromax TIW for now
- Follow-up infectious workup to currently, blood cultures drawn 10/29/2024 show NGTD; Legionella urine antigen negative
- Check sputum culture if he can produce a decent sample and also check strep pneumonia urine antigen
- Start systemic steroids with Solumedrol 40mg IV q8hr --> will start to wean as he clinically improves with eventual prednisone taper
- Re-check CXR tomorrow to assure there are no areas of mucous plugging
- Pulmonary toilet is ribera
-Recommend to start vest therapy as well as nebulized 3%; continue with budesonide but raise to BID (which he was rec'd to use at home at last office visit), continue Advair 115mcg BID and DuoNebs QID
- Mucolytics with mucinex
- Maintain SpO2 88-95% with supplemental O2 and wean down as tolerated back to his home O2 dose, if possible (he says he uses 3L/min as needed, but now he is on 2L/min ATC currently
- prn nebulized bronchodilators - not currently bronchospastic
- Continue with BiPAP 12/8cmH2O (which are his home settings) with sleep
- Incentive spirometer encouraged q1hr while awake (as tolerated)
- Replete electrolytes with K>4, Mg>2
- Trend H/H and transfuse if needed to keep Hb>7g/dL; keep plt>20k, unless there is concern for bleeding then keep plt>50k
- Maintain euglycemia with goal BG >100 and <180 especially while on high-dose steroid
- DVT ppx: LMWH
Pulmonary service will continue to follow along. Recommend him to continue following up with us in the office; he actually already has a follow-up scheduled with LEON Douglass on 11/23/2024 at 10:30 AM. Of note, last visit with Dr. Rodriguez
was on 06/16/2024.
Data:
CXR 10/29/2024:
Interval increase in bilateral lower lobe parenchymal airspace opacity, suggesting pneumonia. These findings are superimposed on changes of chronic bronchitis with bronchiectasis and diffuse bronchial wall thickening seen on CT scan of September 14,
2024.
No evidence for associated pleural effusion.
Total time spent today was 58 minutes for this encounter. Time includes reviewing laboratory test/imaging results, reviewing pertinent medical records, obtaining and reviewing medical history, performing an appropriate exam, ordering medications,
tests and procedures. Time also includes documentation of this encounter, coordinating patient care and communicating with other healthcare professionals. Total time does not include separately billed tests performed on this date of service.
[2024-10-30 15:47] VITALS: BP 160/75
--- NOTE | 2024-10-30 16:07 | CM ---
Patient seen bedside, initial assessment completed. Patient is a 79-year-old male with past medical history significant for COPD, bronchiectasis, ASCVD, hyperlipidemia, essential hypertension, pulmonary hypertension, sleep apnea and GERD who
presented to [facility] ED for evaluation of prolonged cough with increased shortness of breath.
Patient reports that he resides w/ spouse in [place]- 2 steps to enter the home. Patient is independent w/ ambulation, no device required. Independent w/ ADLs. Patient has home O2 (2-3L), uses as needed, doesn't recall the supplier. Patient has
additional shower chair in the home. Denies SNF/HC hx. OP therapy in the past. No current home or OP services at this time.
Address, point of contact and insurance verified
PCP: Félix Anaya
Pharmacy: [facility]
Therapy assessed patient and is currently recommending home PT at d/c. CM to confirm a provider w/ patient and complete referral prior to d/c.
Plan: Home w/ HC
[2024-10-30] MEDS: SOLU-MEDROL PF 40 MG IV ×2 (16:44→23:10)
[2024-10-30] MEDS: LOVENOX 40 MG SC (18:28)
[2024-10-30] MEDS: OSCAL CAL 500 500 MG PO (18:29)
[2024-10-30 22:31] VITALS: PULSE 87
[2024-10-30 23:56] VITALS: BP 152/73
[2024-10-31] MEDS: MAXIPIME 1000 MG IV ×4 (04:20→22:27)
[2024-10-31] MEDS: STERILE WATER FOR INJECTION 10 ML IV ×4 (04:20→22:27)
[2024-10-31 06:40] LABS: % Basophils 0.2 % (0-2); % Immature Granulocytes 0.8 % (0-0.5); % Lymphocytes 10.9 % (20.5-51.1); % Monocytes 1.3 % (1.7-9.3); % Neutrophils 86.8 % (42.2-75.2); Absolute Immature Granulocytes 0.1 10^3/uL (0-0.05); Absolute Lymphocytes 1.3 10^3/uL (1.2-3.4); Absolute Monocytes 0.2 10^3/uL (0.1-0.6); Absolute Neutrophils 10.3 10^3/uL (1.4-6.5); Hematocrit 35.3 % (39.0-52.0); Hemoglobin 11.9 g/dL (13.0-18.0); Mean Corp Hgb Conc. 33.7 g/dL (33.0-37.0); Mean Corpuscular Hgb 28.6 pg (27.0-31.0); Mean Corpuscular Volume 84.9 fL (80.0-94.0); Mean Platelet Volume 8.6 fL (7.4-10.4); Nucleated Red Blood Cells % 0 % (-); Platelet Count 420 10^3/uL (130-400); Red Blood Cell Count 4.16 10^6/uL (4.70-6.10); Red Cell Dist. Width 13.1 % (11.5-14.5); White Blood Cell Count 11.9 10^3/uL (4.8-10.8)
[2024-10-31 07:00] VITALS: BP 159/86
[2024-10-31 07:07] LABS: Blood Urea Nitrogen 17 mg/dl (9-20); Calcium 9.2 mg/dl (8.4-10.2); Carbon Dioxide 26 mmol/L (22-30); Chloride 96 mmol/L (98-107); Estimated Creatinine Clearance 101 ml/min; Glucose 180 mg/dl (70-99); Potassium 4.5 mmol/L (3.5-5.1); Sodium 132 mmol/L (135-145); eGFR > 60.00
[2024-10-31] MEDS: ADVAIR HFA 115/21 MCG INHALER 2 PUFF INH ×2 (08:10→19:41)
[2024-10-31] MEDS: DUONEB 3 ML INH ×4 (08:10→19:42)
[2024-10-31] MEDS: PULMICORT 0.5 MG INH ×2 (08:10→19:42)
[2024-10-31] MEDS: SODIUM CHLORIDE 3% FOR INHALATION 1 VIAL INH ×3 (08:10→19:42)
[2024-10-31] MEDS: PROTONIX 40 MG PO (09:51)
[2024-10-31] MEDS: VIBRAMYCIN 100 MG PO ×2 (09:51→20:34)
[2024-10-31] MEDS: MUCINEX 1200 MG PO ×2 (09:51→20:34)
[2024-10-31] MEDS: FML 0.1% OPHTHALMIC SUSPENSION 1 DROP BOTH EYES (09:52)
[2024-10-31] MEDS: TOPROL XL 25 MG PO (09:52)
[2024-10-31] MEDS: LIPITOR 40 MG PO (09:52)
[2024-10-31] MEDS: ASPIR LOW (ENTERIC COATED) 81 MG PO (09:52)
[2024-10-31] MEDS: SOLU-MEDROL PF 40 MG IV ×2 (09:53→17:50)
--- NOTE | 2024-10-31 10:36 | W.PN.HOSP.TC ---
Today's Communication/Plan
-
Continue with IV steroids
Continue with IV antibiotic
Wean oxygen as tolerated
Continue with bronchodilators
Assessment / Plan
Assessment / Plan
#sepsis 2/2 pneumonia viral vs. bacterial
COVID and influenza and legionella negative
CXR today w/improvement in infiltrate
Blood Cx in lab neg so far
Procal low at 0.16
- Consult pulmonology as known to them
- Cont IV antibiotics w/cefepime and doxy. Holding chronic azithromycin
#hyponatremia
NA 127
- stop HCTZ
- improving to 132
#Leukemoid reaction due to steroids
#AECOPD
#bronchiectasis
#Acute hypoxic Respiratory insufficiency likely combination of COPD exacerbation and pneumonia
- continue home HFA and neb regimen
- DuoNeb QID and PRN, Advair, hypertonic nebulizer
-Mucinex BID
-Continue w/solumedrol 40mg q12h. Vest therapy.
-Pulm following
#ASCVD
s/p CABG
- continue aspirin
#hyperlipidemia
- continue atorvastatin
#essential hypertension
- continue losartan and metoprolol
- stop HCTZ
#GERD
- continue pantoprazole
#sleep apnea
- CPAP at HS
#pulmonary hypertension
Code status: full code
DVT prophylaxis: Lovenox Sq
Anticipated Discharge: > 48 hours
Subjective/Interval History
-
Date of Service: October 31, 2024
states breathing remains same
now with intermittent productive cough
Objective Data
-
Labs:
Laboratory Results
10/31/24
06:23
WBC 11.9 H
Hgb 11.9 L
Hct 35.3 L
Plt Count 420 H
Sodium 132 L
Potassium 4.5
Chloride 96 L
Carbon Dioxide 26
BUN 17
Creatinine 0.6 L
Glucose 180 H
Calcium 9.2
Vital Signs:
Vital Signs
Temp Pulse Resp BP Pulse Ox
97.4 F 80 16 159/86 94
10/31/24 07:00 10/31/24 09:52 10/31/24 08:33 10/31/24 09:52 10/31/24 08:13
I&O
10/30/24 10/31/24 11/01/24
06:59 06:59 06:59
Intake Total 980 / 980 960 / 960
Balance 980 / 980 960 / 960
Physical Exam
-
General: Well Developed and No Apparent Distress
HEENT: Normocephalic, Atraumatic, Moist Mucous Membranes and Oxygen (NC)
Respiratory: Wheezes
Cardiac: Regular Rhythm and S1/S2; Negative Murmur, Rub or Gallop
GI: Soft, Nontender, Nondistended and Normal Bowel Sounds; Negative Organomegaly
Rectal: Deferred by Provider
Musculoskeletal: No Clubbing, No Cyanosis and No Edema
Skin: Negative Rash
Neuro: Awake and Nonfocal/Grossly Intact
Psych: Calm
Data Reviewed
-
Total Time Spent with Patient (in minutes): 55
[2024-10-31 11:41] LABS: Glucose - Point of Care 292 mg/dl (70-99)
[2024-10-31 13:12] LABS: Glycohemoglobin (HgbA1c) 6.5 % (4.0-5.6)
[2024-10-31] MEDS: NOVOLOG FLEXPEN-LOW RESISTANCE 3 UNITS SC (13:35)
[2024-10-31 15:00] VITALS: BP 162/87
[2024-10-31 16:29] LABS: Glucose - Point of Care 166 mg/dl (70-99)
--- NOTE | 2024-10-31 16:47 | W.PN.PUL3 ---
Today's Communication / Plan
-
Abx
Steroids - start to wean tomorrow to solumedrol 40mg IV q12hr
Pulmonary toilet
Aspiration precautions
Re-check home O2 assessment prior to discharge given he is now on continuous O2 and only uses O2 prn at home
Mucolytics
Repeat imaging in 4-6 weeks
Pulmonary to continue to follow along. Outpatient office follow up will also be arranged
Assessment
-
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
surgery, history of pneumonia, and history of Amaya's esophagus with Schatzki's ring and hiatal hernia who presents with shortness of breath. He has been having shortness of breath with increased mucus production since 10/16/2024. Saw pulmonary
in the office on 10/19/2024, with adjustments of his inhalers + vest therapy instructions, and also given a course of doxycycline + prednisone taper. He unfortunately continued to worsen after a few days and then came here to the ER where he was
found to have a lower lobe pneumonia. Antibiotics were started and he was admitted to the hospitalist service, and pulmonary is now consulted for additional management/recommendations.
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
Amaya's esophagus with Schatzki's ring and hiatal hernia, basal cell carcinoma of the skin, Meckel's diverticulum (1965), history of pneumonia
Impression:
#Bilateral pneumonia with a bronchiectasis flare
#Acute COPD exacerbation
#Acute on chronic respiratory failure with hypoxia due to above
#Leukocytosis due to sepsis from pneumonia
#Acute on chronic anemia (baseline Hb 13�14g/dL)
#Chronic hyponatremia
#History of GERD with Schatzki's ring and hiatal hernia
#History of CHELSEY on BiPAP 12/8 cmH2O
#Severe COPD with chronic bronchitis and bronchiectasis (PFT from 02/07/2021 showed a severe obstructive lung defect with significant bronchodilator response, moderate restriction with severe gas exchange capacity defect (DLco: 31%; DLco/VA: 56%; most
recent spirometry from 10/19/2024 shows a mixed severe obstructive lung defect with severe restriction with significant BD response)
#Moderate restrictive lung defect (T% predicted, VC: 54% predicted via PFTs from 02/07/2021)
#Former tobacco use with mild centrilobular emphysema predominantly in the upper lobe
#CAD s/p stenting to LAD + CABG
#Former tobacco smoker (quit in 2011 with [id number] history)
Plan:
- Based on CXR from 10/21/2024, it appears that his bibasilar chronic bronchitis/opacification has worsened suspicious for a superimposed pneumonia. He also has significant leukocytosis although his procalcitonin is WNL at 0.16 from 10/29/2024
- Agree with continued antibiotics with cefepime + doxycycline; please hold his usual Zithromax TIW for now
- Follow-up infectious workup - blood cultures drawn 10/29/2024 show NGTD; Legionella urine antigen negative
- Check sputum culture if he can produce a decent sample; strep pneumonia urine antigen also negative
- Continue systemic steroids with Solumedrol 40mg IV q8hr --> will start to wean as he clinically improves with eventual prednisone taper (tomorrow will start 40mg IV q12hr)
- CXR repeated today shows improved aeration in the lower lobes with no evidence of mucous plugging
- He will need repeat CXR in 4 to 6 weeks to follow-up pneumonia to resolution
- Pulmonary toilet is ribera
- Recommend to continue vest therapy as well as nebulized 3%; continue with budesonide BID, continue Advair 115mcg BID and DuoNebs QID
- Mucolytics with mucinex
- Maintain SpO2 88-95% with supplemental O2 and wean down as tolerated back to his home O2 dose, if possible (he says he uses 3L/min as needed, but now he is on 2L/min ATC currently
- prn nebulized bronchodilators - not currently bronchospastic
- Continue with BiPAP 12/8cmH2O (which are his home settings) with sleep
- Incentive spirometer encouraged q1hr while awake (as tolerated)
- Replete electrolytes with K>4, Mg>2
- Trend H/H and transfuse if needed to keep Hb>7g/dL; keep plt>20k, unless there is concern for bleeding then keep plt>50k
- Maintain euglycemia with goal BG >100 and <180 especially while on high-dose steroid
- DVT ppx: LMWH
Pulmonary service will continue to follow along. Recommend him to continue following up with us in the office; he actually already has a follow-up scheduled with LEON Douglass on 11/23/2024 at 10:30 AM. Of note, last visit with Dr. Rodriguez
was on 06/16/2024.
Data:
CXR 10/29/2024:
Interval increase in bilateral lower lobe parenchymal airspace opacity, suggesting pneumonia. These findings are superimposed on changes of chronic bronchitis with bronchiectasis and diffuse bronchial wall thickening seen on CT scan of September 14
2024.
No evidence for associated pleural effusion.
Total time spent today was 36 minutes for this encounter. Time includes reviewing laboratory test/imaging results, reviewing pertinent medical records, obtaining and reviewing medical history, performing an appropriate exam, ordering medications,
tests and procedures. Time also includes documentation of this encounter, coordinating patient care and communicating with other healthcare professionals. Total time does not include separately billed tests performed on this date of service.
Subjective Data
-
Date of Service:
Date of Service: October 31, 2024
Chief Complaint: Pulmonary Follow Up
Subjective:
Pt seen earlier this AM (late note entry). He is doing good and says he feels better today. Currently on 2L/min. Denies a cough but still has phlegm at times that he produces, but it is better than baseline. Currently denies SOB at rest, chest
pain, f/c. Wore BiPAP overnight on 12/8cmH2O bled with 2L/min.
Review of Systems
General: Other (negative unless mentioned above)
Objective Data
Data Reviewed
Vital Signs / I&O / Oxygen:
Vital Signs
Temp Pulse Resp BP Pulse Ox
97.4 F 80 16 159/86 94
10/31/24 07:00 10/31/24 09:52 10/31/24 08:33 10/31/24 09:52 10/31/24 08:13
Intake and Output
10/30/24 10/31/24 11/01/24
06:59 06:59 06:59
Intake Total 980 / 980 960 / 960
Balance 980 / 980 960 / 960
SaO2 94
Nasal Cannula flow liters per 2
minute
Physical Exam
General: Respiratory Distress (negative), Comfortable, Chills (negative) and Sweats (negative)
HEENT: Normocephalic and Anicteric
Cardiovascular: S1-S2 and Peripheral Edema (negative)
Respiratory: Wheeze (negative), Crackles (bilateral), Rhonchi (negative) and Accessory Resp Muscle Use (negative)
GI: Soft, Non Distended, Non Tender and Normal Bowel Sounds
Neurology: AO x 3 and Tremors (negative)
Skin: Warm, Dry, Cyanosis (negative) and Jaundice (negative)
Labs/Micro/Reports
Lab Data
10/31/24 06:23
10/31/24 06:23
Microbiology
10/31/24 06:19 Urine Streptococcus pneumoniae Antigen (M - Final
Negative for Streptococcus pneumoniae antigen.
A negative result does not exclude infection with
Streptococcus pneumoniae. Clinical correlation is
recommended.
03/28/25 13:19 Blood/Venous Blood Culture - Preliminary
No Growth in 24 hours- Final report to follow
10/29/24 13:19 Blood/Venous Blood Culture - Preliminary
No Growth in 24 hours- Final report to follow
10/29/24 16:32 Urine Legionella Urinary Antigen - Final
Negative for Legionella pneumophila Serogroup 1 antigen.
A negative result does not rule out the possiblity of
Legionella infection due to other serogroups or species of
Legionella. Clinical correlation is recommended.
10/29/24 13:19 Nasal Swab Influenza Types A & B ([facility]) - Final
Negative for Influenza A & B, NAAT
Negative results must be combined with clinical observations
and patient history.
Nucleic Acid Amplification test (NAAT)performed on the
[employer] platform.
[2024-10-31] MEDS: OSCAL CAL 500 500 MG PO (17:50)
[2024-10-31] MEDS: LOVENOX 40 MG SC (17:50)
[2024-10-31] MEDS: NOVOLOG FLEXPEN-LOW RESISTANCE 1 UNITS SC (17:52)
[2024-10-31] MEDS: DULCOLAX 10 MG PO (18:33)
[2024-10-31] MEDS: SENOKOT-S 1 TABLET PO (20:34)
[2024-10-31 21:36] LABS: Glucose - Point of Care 219 mg/dl (70-99)
[2024-10-31 22:30] VITALS: PULSE 2
[2024-10-31 23:25] VITALS: BP 159/84
[2024-11-01] MEDS: SOLU-MEDROL PF 40 MG IV ×2 (00:13→09:07)
[2024-11-01] MEDS: TYLENOL 650 MG PO ×2 (00:18→22:48)
[2024-11-01] MEDS: MAXIPIME 1000 MG IV ×4 (04:14→21:49)
[2024-11-01] MEDS: STERILE WATER FOR INJECTION 10 ML IV ×4 (04:14→21:49)
[2024-11-01 04:25] VITALS: PULSE 2
[2024-11-01 07:35] LABS: Glucose - Point of Care 167 mg/dl (70-99)
[2024-11-01] MEDS: DUONEB 3 ML INH ×2 (07:56→11:16)
[2024-11-01] MEDS: PULMICORT 0.5 MG INH ×2 (07:56→19:42)
[2024-11-01] MEDS: SODIUM CHLORIDE 3% FOR INHALATION 1 VIAL INH ×3 (07:56→19:42)
[2024-11-01] MEDS: ADVAIR HFA 115/21 MCG INHALER 2 PUFF INH ×2 (07:56→19:41)
[2024-11-01 08:02] LABS: % Basophils 0.1 % (0-2); % Lymphocytes 9.8 % (20.5-51.1); % Monocytes 2.6 % (1.7-9.3); % Neutrophils 86.5 % (42.2-75.2); Absolute Immature Granulocytes 0.2 10^3/uL (0-0.05); Absolute Lymphocytes 1.4 10^3/uL (1.2-3.4); Absolute Monocytes 0.4 10^3/uL (0.1-0.6); Absolute Neutrophils 12.7 10^3/uL (1.4-6.5); Hematocrit 33.4 % (39.0-52.0); Hemoglobin 11.4 g/dL (13.0-18.0); Mean Corp Hgb Conc. 34.1 g/dL (33.0-37.0); Mean Corpuscular Hgb 28.7 pg (27.0-31.0); Mean Corpuscular Volume 84.1 fL (80.0-94.0); Mean Platelet Volume 8.6 fL (7.4-10.4); Nucleated Red Blood Cells % 0 % (-); Platelet Count 415 10^3/uL (130-400); Red Blood Cell Count 3.97 10^6/uL (4.70-6.10); Red Cell Dist. Width 12.8 % (11.5-14.5); White Blood Cell Count 14.7 10^3/uL (4.8-10.8)
[2024-11-01 08:08] VITALS: BP 162/87
[2024-11-01 08:47] LABS: Blood Urea Nitrogen 21 mg/dl (9-20); Calcium 8.8 mg/dl (8.4-10.2); Carbon Dioxide 28 mmol/L (22-30); Chloride 94 mmol/L (98-107); Estimated Creatinine Clearance 101 ml/min; Glucose 162 mg/dl (70-99); Potassium 4.9 mmol/L (3.5-5.1); Sodium 130 mmol/L (135-145); eGFR > 60.00
[2024-11-01] MEDS: NOVOLOG FLEXPEN-LOW RESISTANCE 1 UNITS SC ×2 (09:03→12:46)
[2024-11-01] MEDS: TOPROL XL 25 MG PO (09:04)
[2024-11-01] MEDS: MUCINEX 1200 MG PO ×2 (09:04→20:19)
[2024-11-01] MEDS: FML 0.1% OPHTHALMIC SUSPENSION 1 DROP BOTH EYES (09:04)
[2024-11-01] MEDS: ASPIR LOW (ENTERIC COATED) 81 MG PO (09:04)
[2024-11-01] MEDS: VIBRAMYCIN 100 MG PO ×2 (09:04→20:19)
[2024-11-01] MEDS: LIPITOR 40 MG PO (09:07)
[2024-11-01] MEDS: SENOKOT-S PO (09:07)
[2024-11-01] MEDS: PROTONIX 40 MG PO (09:07)
[2024-11-01 10:53] VITALS: BP 149/86; PULSE 85; PULSE 93; O2SAT 97
[2024-11-01 11:46] LABS: Glucose - Point of Care 163 mg/dl (70-99)
--- NOTE | 2024-11-01 12:49 | CM ---
Reviewed Pt documentation, indication is for home health. Met with patient and his at bedside. Patient stated that prior to hospitalization he was independent and active. He denied need for home health and clarified that he is not home bound.
CM contact information provided in event that he feels he needs. it.
Plan: Case management will continue to follow and assist with discharge planning. Home with patient's when stable for discharge.
--- NOTE | 2024-11-01 13:41 | W.PN.HOSP.TC ---
Today's Communication/Plan
-
IV steroid taper
Continue IV antibiotics
Continue bronchodilators
Continue pulmonary toileting/vest/3% nebs
SpO2 goal 88-94%
Assessment / Plan
Assessment / Plan
#Acute hypoxemic respiratory insufficiency
#Sepsis secondary to bronchiectasis flare +/- CAP
#Acute exacerbation of COPD
-Patient with severe COPD and bronchiectasis; on chronic azithromycin; on nightly BiPAP for CHELSEY
-Presented with worsening shortness of breath; chest x-ray with infiltrates; procalcitonin 0.16
-Was started on IV Solu-Medrol, cefepime, doxycycline; Home azithromycin was held
-Was started on pulmonary toileting with vest therapy, 3% saline nebs, Acapella
-Continued on bronchodilators PRN, home Advair and budesonide
-As of 11/01/2024 was saturating well on 1 L of oxygen, SpO2 mid 90s
Plan
-Continue with IV steroid taper, transition to once daily Solu-Medrol v. oral prednisone on 11/02
-Continue with cefepime and doxycycline for now; consider Levaquin as oral option for cefepime
-Continue with as needed bronchodilators and home maintenance regimen
-Continue with pulmonary toileting, vest, 3% saline nebs
-SpO2 goal 88-94 %
#Hypovolemic hyponatremia
-Suspect that this is related to HCTZ use; sodium here between 128 and 132
-Hydrochlorothiazide was held, sodium remains stable but lower than normal limits
-Will continue to trend BMP and hold diuretics
-Consider urine studies if worsening
#CAD s/p CABG x1 + PCI
-Home regimen includes aspirin, high intensity statin, beta-emil, as needed nitroglycerin
-Last echocardiogram with preserved LVEF
-No signs of ACS or CHF
#Obstructive sleep apnea
-Remains on nightly BiPAP 12/8 mmHg
#Pulmonary hypertension
-Suspect group 3 disease with severe COPD, bronchiectasis, CHELSEY
-Last PFTs with severe obstructive disease as well as moderate restrictive disease
-No indications for primary intervention to pulmonary pressures
#Systemic hypertension
-No known history of hypertensive systemic disease
-Home medications include losartan, HCTZ, metoprolol
-HCTZ held due to hyponatremia as above, blood pressure elevated since
-Start as needed hydralazine for SBP > 180
#GERD
#H/O Schatzki's ring
-Home medications include daily pantoprazole 40 mg
-No known history of erosive esophagus or Amaya's esophagus
-No signs of dysphagia
#Moh's x 6
#TURP (2016)
DVT prophylaxis: Subcu Lovenox
Diet: Regular
CODE STATUS: Full code
Anticipated Discharge: 24 - 48 hours
Subjective/Interval History
-
Date of Service: November 01, 2024
Seen and examined at the bedside. No acute events reported overnight. AFVSS this morning on 2 to 3 L O2
Serum sodium stable at 130. White count remains slightly elevated at 14 today
He states he feels well and denies any new complaints
Objective Data
-
Labs:
Laboratory Results
11/01/24
07:21
WBC 14.7 H
Hgb 11.4 L
Hct 33.4 L
Plt Count 415 H
Sodium 130 L
Potassium 4.9
Chloride 94 L
Carbon Dioxide 28
BUN 21 H
Creatinine 0.6 L
Glucose 162 H
Calcium 8.8
Vital Signs:
Vital Signs
Temp Pulse Resp BP Pulse Ox
98.1 F 85 16 162/87 95
11/01/24 08:08 11/01/24 11:15 11/01/24 11:15 11/01/24 09:04 11/01/24 11:15
I&O
10/31/24 11/01/24 11/02/24
06:59 06:59 06:59
Intake Total 960 / 960 1560 / 1560
Balance 960 / 960 1560 / 1560
Review of Systems
-
History Source: Patient
All other systems: Reviewed and negative
Physical Exam
-
General: Well Developed, Well Nourished and No Apparent Distress
HEENT: Normocephalic, Atraumatic, Moist Mucous Membranes and Oxygen
Respiratory: Non Labored Respirations and Decreased Breath Sounds; Negative Wheezes, Rales, Rhonchi or Accessory Resp Muscle Use
Cardiac: Regular Rhythm and S1/S2; Negative Murmur, Rub or Gallop
GI: Soft, Nontender, Nondistended and Normal Bowel Sounds
Musculoskeletal: No Clubbing, No Cyanosis and No Edema
Skin: Warm, Dry and Normal Turgor; Negative Rash
Neuro: AO x 3 and Nonfocal/Grossly Intact
Psych: Calm
Data Reviewed
-
Labs: Labs Reviewed by me and Discussed with Patient
--- NOTE | 2024-11-01 14:16 | W.PN.PUL3 ---
Today's Communication / Plan
-
-Sputum culture
-D/c IV steroids, start Prednisone 30 mg daily in AM
-Hold Ipratropium in view of difficulty expectorating
-Albuterol Neb scheduled tid with 35 Saline
Assessment
-
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
surgery, history of pneumonia, and history of Amaya's esophagus with Schatzki's ring and hiatal hernia who presents with shortness of breath. He has been having shortness of breath with increased mucus production since 10/16/2024. Saw pulmonary
in the office on 10/19/2024, with adjustments of his inhalers + vest therapy instructions, and also given a course of doxycycline + prednisone taper. He unfortunately continued to worsen after a few days and then came here to the ER where he was
found to have a lower lobe pneumonia. Antibiotics were started and he was admitted to the hospitalist service, and pulmonary is now consulted for additional management/recommendations.
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
Amaya's esophagus with Schatzki's ring and hiatal hernia, basal cell carcinoma of the skin, Meckel's diverticulum (1964), history of pneumonia
Assessment and Plan:
#1. Bilateral pneumonia with a bronchiectasis flare
-Clinically and Radiologically improving
-Continue Cefepime and Doxycycline
-Influenza screen, Legionella and Pneumococcal Ag negative. Sputum cultures not dose
-Continue 3% Saline Nebz tid, add Albuterol along with it
-D/c Duoneb as patient reports having difficulty expectorating, avoid Anticholinergics
-Last flare of bronchiectasis was 1 year ago, requiring antibiotics. No indication for inhaled Antibiotics for now
-Resume chronic Azithromycin at d/c
-Continue Flutter valve and Chest vest therapy
#2. Acute on chronic COPD exacerbation. (PFT from 02/07/2021 showed a severe obstructive lung defect with significant bronchodilator response, moderate restriction with severe gas exchange capacity defect (DLco: 31%). h/o smoking and centrilobular
emphysema om imaging.
-Continue Advair, Albuterol
-Lower steroids further
-Hold Anticholinergics with difficulty expectorating
-Continue O2
#3. Acute on chronic respiratory failure with hypoxia due to above
-Improving, O2 as needed
#4. History of CHELSEY on BiPAP 12/8 cmH2O
-Continue PAP therapy
Pulmonary service will continue to follow along. Recommend him to continue following up with us in the office; he actually already has a follow-up scheduled with LEON Douglass on 11/23/2024 at 10:30 AM. Of note, last visit with Dr. Rodriguez
was on 06/16/2024.
Data:
CXR 10/29/2024:
Interval increase in bilateral lower lobe parenchymal airspace opacity, suggesting pneumonia. These findings are superimposed on changes of chronic bronchitis with bronchiectasis and diffuse bronchial wall thickening seen on CT scan of September 14,
2024.
No evidence for associated pleural effusion.
Total time spent today was 32 minutes for this encounter. Time includes reviewing laboratory test/imaging results, reviewing pertinent medical records, obtaining and reviewing medical history, performing an appropriate exam, ordering medications,
tests and procedures. Time also includes documentation of this encounter, coordinating patient care and communicating with other healthcare professionals. Total time does not include separately billed tests performed on this date of service.
Subjective Data
-
Date of Service:
Date of Service: November 01, 2024
Chief Complaint: Pulmonary Follow Up
Subjective:
Comfortable, reports improving symptoms
Review of Systems
Genitourinary: Other (negative except as stated in HPI)
Objective Data
Data Reviewed
Vital Signs / I&O / Oxygen:
Vital Signs
Temp Pulse Resp BP Pulse Ox
98.1 F 85 16 162/87 95
11/01/24 08:08 11/01/24 11:15 11/01/24 11:15 11/01/24 09:04 11/01/24 11:15
Intake and Output
10/31/24 11/01/24 11/02/24
06:59 06:59 06:59
Intake Total 960 / 960 1560 / 1560
Balance 960 / 960 1560 / 1560
SaO2 95
Nasal Cannula flow liters per 3
minute
Physical Exam
General: Comfortable
HEENT: Normocephalic
Cardiovascular: S1-S2
Respiratory: Clear
GI: Soft and Non Distended
Neurology: Awake, Alert and Oriented
Skin: Warm
Labs/Micro/Reports
Lab Data
11/01/24 07:21
11/01/24 07:21
Microbiology
10/29/24 13:19 Blood/Venous Blood Culture - Preliminary
No Growth in 72 hours- Final report to follow
10/29/24 13:19 Blood/Venous Blood Culture - Preliminary
No Growth in 72 hours- Final report to follow
10/31/24 06:19 Urine Streptococcus pneumoniae Antigen (M - Final
Negative for Streptococcus pneumoniae antigen.
A negative result does not exclude infection with
Streptococcus pneumoniae. Clinical correlation is
recommended.
10/29/24 16:32 Urine Legionella Urinary Antigen - Final
Negative for Legionella pneumophila Serogroup 1 antigen.
A negative result does not rule out the possiblity of
Legionella infection due to other serogroups or species of
Legionella. Clinical correlation is recommended.
10/29/24 13:19 Nasal Swab Influenza Types A & B ([facility]) - Final
Negative for Influenza A & B, NAAT
Negative results must be combined with clinical observations
and patient history.
Nucleic Acid Amplification test (NAAT)performed on the
[employer] platform.
[2024-11-01 15:58] VITALS: BP 152/76
[2024-11-01] MEDS: SENNA SYRUP 8.8 MG PO (16:34)
[2024-11-01 17:29] LABS: Glucose - Point of Care 200 mg/dl (70-99)
[2024-11-01] MEDS: NOVOLOG FLEXPEN-LOW RESISTANCE 2 UNITS SC (17:43)
[2024-11-01] MEDS: LOVENOX 40 MG SC (17:43)
[2024-11-01] MEDS: OSCAL CAL 500 500 MG PO (17:43)
[2024-11-01] MEDS: VENTOLIN NEBULES 2.5 MG INH (19:53)
[2024-11-01] MEDS: SENOKOT-S 1 TABLET PO (20:19)
[2024-11-01 21:23] LABS: Glucose - Point of Care 155 mg/dl (70-99)
[2024-11-01 22:19] VITALS: PULSE 2
[2024-11-01 22:42] VITALS: BP 137/73
[2024-11-02 03:10] VITALS: PULSE 2; PULSE 85
[2024-11-02] MEDS: STERILE WATER FOR INJECTION 10 ML IV ×2 (04:55→09:21)
[2024-11-02] MEDS: MAXIPIME 1000 MG IV ×2 (04:55→09:20)
[2024-11-02 07:20] VITALS: BP 143/83
[2024-11-02 07:36] LABS: Glucose - Point of Care 93 mg/dl (70-99)
[2024-11-02] MEDS: NOVOLOG FLEXPEN-LOW RESISTANCE SC ×2 (07:40→12:15)
--- NOTE | 2024-11-02 08:36 | W.PN.PUL3 ---
Today's Communication / Plan
-
- Patient stable for discharge
-Resume long-term azithromycin at discharge, add Omnicef twice a day for a total of 10 days of antibiotic treatment for current episode
-Resume hypertonic saline and albuterol at home, along with flutter valve and vest therapy
-Resume Advair at discharge
-Will hold Spiriva and see how patient does clinically as he reports having difficulty expectorating while on Spiriva this week and reassess during his follow-up clinic visit.
Assessment
-
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
surgery, history of pneumonia, and history of Amaya's esophagus with Schatzki's ring and hiatal hernia who presents with shortness of breath. He has been having shortness of breath with increased mucus production since 10/16/2024. Saw pulmonary
in the office on 10/19/2024, with adjustments of his inhalers + vest therapy instructions, and also given a course of doxycycline + prednisone taper. He unfortunately continued to worsen after a few days and then came here to the ER where he was
found to have a lower lobe pneumonia. Antibiotics were started and he was admitted to the hospitalist service, and pulmonary is now consulted for additional management/recommendations.
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
Amaya's esophagus with Schatzki's ring and hiatal hernia, basal cell carcinoma of the skin, Meckel's diverticulum (1965), history of pneumonia
Assessment and Plan:
#1. Bilateral pneumonia with a bronchiectasis flare
-Clinically and Radiologically improving
-Continue Cefepime and Doxycycline while in hospital, resume usp Azithromycin at discharge, and add Omnicef PO for a total of 10 days of treatment for current episode
-Influenza screen, Legionella and Pneumococcal Ag negative. Sputum cultures not done
-Continue 3% Saline Nebz tid, added Albuterol along with it
-D/c Duoneb as patient reports having difficulty expectorating, avoid Anticholinergics
-Last flare of bronchiectasis was 1 year ago, requiring antibiotics. No indication for inhaled Antibiotics for now
-Resume chronic Azithromycin at d/c
-Continue Flutter valve and Chest vest therapy
-Patient uses flutter valve and vest therapy at home
#2. Acute on chronic COPD exacerbation. (PFT from 02/07/2021 showed a severe obstructive lung defect with significant bronchodilator response, moderate restriction with severe gas exchange capacity defect (DLco: 31%). h/o smoking and centrilobular
emphysema om imaging.
-Continue Advair, Albuterol
-Taper steroids further
-Hold Anticholinergics with difficulty expectorating
-Continue O2
#3. Acute on chronic respiratory failure with hypoxia due to above
-Improving, O2 as needed
#4. History of CHELSEY on BiPAP 12/8 cmH2O
-Continue PAP therapy
Pulmonary service will continue to follow along. Recommend him to continue following up with us in the office; he actually already has a follow-up scheduled with LEON Douglass on 11/23/2024 at 10:30 AM. Of note, last visit with Dr. Rodriguez
was on 06/16/2024.
Data:
CXR 10/29/2024:
Interval increase in bilateral lower lobe parenchymal airspace opacity, suggesting pneumonia. These findings are superimposed on changes of chronic bronchitis with bronchiectasis and diffuse bronchial wall thickening seen on CT scan of September 14
2024.
No evidence for associated pleural effusion.
ECHO 10/2022: Normal biventricular size and systolic function without regional wall motion abnormality. No significant valvular disease. No significant change since the prior study of 11/12/21
Total time spent today was 40 minutes for this encounter. Time includes reviewing laboratory test/imaging results, reviewing pertinent medical records, obtaining and reviewing medical history, performing an appropriate exam, ordering medications,
tests and procedures. Time also includes documentation of this encounter, coordinating patient care and communicating with other healthcare professionals. Total time does not include separately billed tests performed on this date of service.
Subjective Data
-
Date of Service:
Date of Service: November 02, 2024
Chief Complaint: Pulmonary Follow Up
Subjective:
Patient comfortably sitting in bed, feels at his baseline now. Cough improved.
Review of Systems
Genitourinary: Other (All 14 systems reviewed and negative except as stated above in the history of present illness.)
Objective Data
Data Reviewed
Vital Signs / I&O / Oxygen:
Vital Signs
Temp Pulse Resp BP Pulse Ox
98.6 F 73 16 137/73 96
11/01/24 22:42 11/01/24 22:42 11/01/24 22:42 11/01/24 22:42 11/01/24 22:42
Intake and Output
11/01/24 11/02/24 11/03/24
06:59 06:59 06:59
Intake Total 1560 / 1560
Balance 1560 / 1560
SaO2 96
Nasal Cannula flow liters per 3
minute
Physical Exam
General: Comfortable
HEENT: Normocephalic
Cardiovascular: S1-S2
Respiratory: Clear and Non-Labored Respirations
GI: Soft and Non Distended
Neurology: Awake, Alert and Oriented
Skin: Warm
Labs/Micro/Reports
Microbiology
10/29/24 13:19 Blood/Venous Blood Culture - Preliminary
No Growth in 72 hours- Final report to follow
10/29/24 13:19 Blood/Venous Blood Culture - Preliminary
No Growth in 72 hours- Final report to follow
10/31/24 06:19 Urine Streptococcus pneumoniae Antigen (M - Final
Negative for Streptococcus pneumoniae antigen.
A negative result does not exclude infection with
Streptococcus pneumoniae. Clinical correlation is
recommended.
[2024-11-02] MEDS: SODIUM CHLORIDE 3% FOR INHALATION 1 VIAL INH ×2 (08:47→12:02)
[2024-11-02] MEDS: ADVAIR HFA 115/21 MCG INHALER 2 PUFF INH (08:47)
[2024-11-02] MEDS: PULMICORT 0.5 MG INH (08:47)
[2024-11-02] MEDS: VENTOLIN NEBULES 2.5 MG INH ×2 (08:48→12:02)
[2024-11-02 08:56] LABS: % Basophils 0.2 % (0-2); % Eosinophils 0.3 % (0-6); % Lymphocytes 22.1 % (20.5-51.1); % Monocytes 6.1 % (1.7-9.3); % Neutrophils 70.3 % (42.2-75.2); Absolute Immature Granulocytes 0.1 10^3/uL (0-0.05); Absolute Lymphocytes 2.8 10^3/uL (1.2-3.4); Absolute Monocytes 0.8 10^3/uL (0.1-0.6); Absolute Neutrophils 9.1 10^3/uL (1.4-6.5); Hemoglobin 11.4 g/dL (13.0-18.0); Mean Corp Hgb Conc. 34.5 g/dL (33.0-37.0); Mean Corpuscular Hgb 28.9 pg (27.0-31.0); Mean Corpuscular Volume 83.8 fL (80.0-94.0); Mean Platelet Volume 8.9 fL (7.4-10.4); Nucleated Red Blood Cells % 0 % (-); Platelet Count 423 10^3/uL (130-400); Red Blood Cell Count 3.94 10^6/uL (4.70-6.10); Red Cell Dist. Width 12.8 % (11.5-14.5); White Blood Cell Count 12.9 10^3/uL (4.8-10.8)
[2024-11-02] MEDS: ASPIR LOW (ENTERIC COATED) 81 MG PO (09:18)
[2024-11-02] MEDS: TOPROL XL 25 MG PO (09:18)
[2024-11-02] MEDS: SENOKOT-S 1 TABLET PO (09:19)
[2024-11-02] MEDS: MUCINEX 1200 MG PO (09:20)
[2024-11-02] MEDS: VIBRAMYCIN 100 MG PO (09:20)
[2024-11-02] MEDS: FML 0.1% OPHTHALMIC SUSPENSION 1 DROP BOTH EYES (09:20)
[2024-11-02] MEDS: PROTONIX 40 MG PO (09:20)
[2024-11-02] MEDS: LIPITOR 40 MG PO (09:20)
[2024-11-02] MEDS: DELTASONE 30 MG PO (09:20)
[2024-11-02 09:51] LABS: Blood Urea Nitrogen 24 mg/dl (9-20); Calcium 8.6 mg/dl (8.4-10.2); Carbon Dioxide 29 mmol/L (22-30); Chloride 95 mmol/L (98-107); Estimated Creatinine Clearance 87 ml/min; Glucose 81 mg/dl (70-99); Potassium 4.5 mmol/L (3.5-5.1); Sodium 129 mmol/L (135-145); eGFR > 60.00
--- NOTE | 2024-11-02 10:57 | W.PN.HOSP.TC ---
Today's Communication/Plan
-
Oral steroid taper
Transition to chronic azithromycin and cefdinir
Prescription for Acapella at discharge
BMP in 1 week
Assessment / Plan
Assessment / Plan
#Acute hypoxemic respiratory insufficiency
#Sepsis secondary to bronchiectasis flare +/- CAP
#Acute exacerbation of COPD
-Patient with severe COPD and bronchiectasis; on chronic azithromycin; on nightly BiPAP for CHELSEY
-Presented with worsening shortness of breath; chest x-ray with infiltrates; procalcitonin 0.16
-Was started on IV Solu-Medrol, cefepime, doxycycline; Home azithromycin was held
-Was started on pulmonary toileting with vest therapy, 3% saline nebs, Acapella
-Continued on bronchodilators PRN, home Advair and budesonide
-As of 11/01/2024 was saturating well on 1 L of oxygen, SpO2 mid 90s
Plan
-Transition to oral steroid today, plan for short-term taper at time of discharge
-Transition cefepime and doxycycline to cefdinir (to complete 10 days) and chronic azithromycin
-Continue with as needed bronchodilators and home maintenance regimen
-Continue with pulmonary toileting, vest, 3% saline nebs
-Discontinue Spiriva
-Home O2 eval
-SpO2 goal 88-94 %
#Hypovolemic hyponatremia
-Suspect that this is related to HCTZ use; sodium here between 128 and 132
-Hydrochlorothiazide was held, sodium remains stable but lower than normal limits
-Will continue to trend BMP and hold diuretics
-Serum sodium today 129, stable over multiple days
#CAD s/p CABG x1 + PCI
-Home regimen includes aspirin, high intensity statin, beta-emil, as needed nitroglycerin
-Last echocardiogram with preserved LVEF
-No signs of ACS or CHF
#Obstructive sleep apnea
-Remains on nightly BiPAP 12/8 mmHg
#Pulmonary hypertension
-Suspect group 3 disease with severe COPD, bronchiectasis, CHELSEY
-Last PFTs with severe obstructive disease as well as moderate restrictive disease
-No indications for primary intervention to pulmonary pressures
#Systemic hypertension
-No known history of hypertensive systemic disease
-Home medications include losartan, HCTZ, metoprolol
-HCTZ held due to hyponatremia as above, blood pressure elevated since
-Start as needed hydralazine for SBP > 180
#GERD
#H/O Schatzki's ring
-Home medications include daily pantoprazole 40 mg
-No known history of erosive esophagus or Amyaa's esophagus
-No signs of dysphagia
#Moh's x 6
#TURP (2016)
DVT prophylaxis: Subcu Lovenox
Diet: Regular
CODE STATUS: Full code
Anticipated Discharge: Today
Subjective/Interval History
-
Date of Service: November 02, 2024
Seen and examined at the bedside. No acute events reported overnight. AFVSS on 2 L oxygen with SpO2 high 90s
Patient was walking around the room, states he feels well. Mild cough with slight mucus production. Denies fevers or chills, denies wheezing
Denies any other new complaints this morning. States he feels ready to leave the hospital
Objective Data
-
Labs:
Laboratory Results
11/02/24
07:47
WBC 12.9 H
Hgb 11.4 L
Hct 33.0 L
Plt Count 423 H
Sodium 129 L
Potassium 4.5
Chloride 95 L
Carbon Dioxide 29
BUN 24 H
Creatinine 0.7
Glucose 81
Calcium 8.6
Vital Signs:
Vital Signs
Temp Pulse Resp BP Pulse Ox
97.8 F 77 18 143/83 96
11/02/24 07:20 11/02/24 08:52 11/02/24 08:52 11/02/24 09:18 11/02/24 08:52
I&O
11/01/24 11/02/24 11/03/24
06:59 06:59 06:59
Intake Total 1559
Balance 1559
Review of Systems
-
History Source: Patient
All other systems: Reviewed and negative
Physical Exam
-
General: Well Developed, No Apparent Distress and Comfortable
HEENT: Normocephalic, Atraumatic, Moist Mucous Membranes, Anicteric and Oxygen
Respiratory: Non Labored Respirations and Decreased Breath Sounds; Negative Wheezes, Rales, Rhonchi or Accessory Resp Muscle Use
Cardiac: Regular Rhythm and S1/S2; Negative Murmur, Rub or Gallop
GI: Soft, Nontender, Nondistended and Normal Bowel Sounds
Musculoskeletal: No Clubbing, No Cyanosis and No Edema
Skin: Warm, Dry and Normal Turgor; Negative Rash
Neuro: AO x 3 and Nonfocal/Grossly Intact
Psych: Calm
[2024-11-02 12:09] LABS: Glucose - Point of Care 106 mg/dl (70-99)
[2024-11-02 12:53] VITALS: BP 149/79
--- NOTE | 2024-11-02 13:15 | CM ---
Spoke with patient regarding his right to appeal d/c. He stated that he was agreeable. IMM reviewed now on chart.
Plan: Case management will continue to follow and assist with discharge planning. Home.
== END 2024-11-02 13:13 | disposition home or self-care (01) | DRG 871 ==
LOC: 4 EAST ACU 16:49
PROVIDERS: Emergency Medicine; Hospitalist; Nurse Practitioner Family; Physician Assistant Medical; ADMITTING PHYSICIAN Internal Medicine; ATTENDING PHYSICIAN Internal Medicine; EMERGENCY PHYSICIAN Student in an Organized Health Care Education/Training Program; FAMILY PHYSICIAN Registered Nurse; OTHER PHYSICIAN Internal Medicine Critical Care Medicine
DX: A41.89 Other specified sepsis (principal); J18.9 Pneumonia, unspecified organism; J96.21 Acute and chronic respiratory failure with hypoxia; E87.1 Hypo-osmolality and hyponatremia; J44.1 Chronic obstructive pulmonary disease with (acute) exacerbation; J47.1 Bronchiectasis with (acute) exacerbation; Z87.891 Personal history of nicotine dependence; I25.10 Atherosclerotic heart disease of native coronary artery without angina pectoris; Z95.1 Presence of aortocoronary bypass graft; E78.5 Hyperlipidemia, unspecified; I10 Essential (primary) hypertension; K21.9 Gastro-esophageal reflux disease without esophagitis; G47.33 Obstructive sleep apnea (adult) (pediatric); I27.20 Pulmonary hypertension, unspecified; Z11.52 Encounter for screening for COVID-19
CPT/HCPCS: 71046; 80048; 80053; 82962; 83036; 83605; 83880; 84145; 84484; 85025; 85027; 87040; 87449; 87502; 87811; 87899; 93005; 94640; 94660; 94669; 96374; 97116; 97163; 97530; 99285

== ENCOUNTER → 2024-11-26 10:23 | Outpatient (REF) | payer OTHER, SELFPAY | LOC: HWRAD 10:23 | PROVIDERS: ATTENDING PHYSICIAN Nurse Practitioner Adult Health; FAMILY PHYSICIAN Registered Nurse | DX: J47.9 Bronchiectasis, uncomplicated (principal); R09.02 Hypoxemia | CPT/HCPCS: 71046 ==

== ENCOUNTER → 2024-12-23 09:59 | Outpatient (REF) | payer OTHER, SELFPAY | LOC: HWRAD 09:59 | PROVIDERS: ATTENDING PHYSICIAN Registered Nurse; REFERRING PHYSICIAN Nurse Practitioner Adult Health | DX: J18.9 Pneumonia, unspecified organism (principal) | CPT/HCPCS: 71046 ==

== ENCOUNTER → 2025-01-13 10:51 | Outpatient (REF) | payer OTHER, SELFPAY ==
[2025-01-13 11:18] LABS: % Basophils 0.3 % (0-2); % Eosinophils 0.4 % (0-6); % Immature Granulocytes 0.4 % (0-0.5); % Lymphocytes 14.5 % (20.5-51.1); % Monocytes 6.4 % (1.7-9.3); Absolute Basophils 0.1 10^3/uL (0-0.2); Absolute Eosinophils 0.1 10^3/uL (0-0.7); Absolute Immature Granulocytes 0.1 10^3/uL (0-0.05); Absolute Lymphocytes 2.3 10^3/uL (1.2-3.4); Absolute Neutrophils 12.2 10^3/uL (1.4-6.5); Hematocrit 37.7 % (39.0-52.0); Hemoglobin 12.7 g/dL (13.0-18.0); Mean Corp Hgb Conc. 33.7 g/dL (33.0-37.0); Mean Corpuscular Hgb 29.1 pg (27.0-31.0); Mean Corpuscular Volume 86.3 fL (80.0-94.0); Mean Platelet Volume 8.8 fL (7.4-10.4); Nucleated Red Blood Cells % 0 % (-); Platelet Count 364 10^3/uL (130-400); Red Blood Cell Count 4.37 10^6/uL (4.70-6.10); Red Cell Dist. Width 13.9 % (11.5-14.5); White Blood Cell Count 15.6 10^3/uL (4.8-10.8)
[2025-01-13 11:30] LABS: Blood Urea Nitrogen 10 mg/dl (9-20); Calcium 9.4 mg/dl (8.4-10.2); Carbon Dioxide 28 mmol/L (22-30); Chloride 99 mmol/L (98-107); Glucose 120 mg/dl (70-99); Potassium 3.8 mmol/L (3.5-5.1); Sodium 136 mmol/L (135-145); eGFR > 60.00
== END ==
LOC: RAD 10:51
PROVIDERS: ATTENDING PHYSICIAN Registered Nurse
DX: R06.02 Shortness of breath (principal); J44.9 Chronic obstructive pulmonary disease, unspecified
CPT/HCPCS: 36415; 71046; 80048; 85025

== ENCOUNTER 2025-01-27 13:00 | Outpatient (RCR) | payer OTHER, SELFPAY | END 2025-01-31 09:44 | disposition home or self-care (01) | LOC: PURB 13:00 | PROVIDERS: ATTENDING PHYSICIAN Internal Medicine Critical Care Medicine | DX: J44.9 Chronic obstructive pulmonary disease, unspecified (principal); J47.9 Bronchiectasis, uncomplicated | CPT/HCPCS: G0237 ==

== ENCOUNTER → 2025-02-14 13:01 | Outpatient (REF) | payer OTHER, SELFPAY | LOC: HWRAD 13:01 | PROVIDERS: ATTENDING PHYSICIAN Registered Nurse | DX: R93.89 Abnormal findings on diagnostic imaging of other specified body structures (principal); J18.9 Pneumonia, unspecified organism | CPT/HCPCS: 71250 ==

== ENCOUNTER 2025-02-22 19:26 | Emergency (ER) | payer OTHER, SELFPAY ==
[2025-02-22 19:31] VITALS: BP 139/94
[2025-02-22 19:47] LABS: Hematocrit 35.0 % (39.0-52.0); Hemoglobin 11.9 g/dL (13.0-18.0); Mean Corp Hgb Conc. 34.0 g/dL (33.0-37.0); Mean Corpuscular Volume 85.2 fL (80.0-94.0); Nucleated Red Blood Cells % 0 % (-); Platelet Count 350 10^3/uL (130-400); Red Cell Dist. Width 13.4 % (11.5-14.5)
[2025-02-22 20:10] LABS: ALT (SGPT) 18 U/L (0-50); AST (SGOT) 22 U/L (17-59); Albumin 4.0 g/dl (3.5-5.0); Alkaline Phosphatase 106 U/L (38-126); Blood Urea Nitrogen 9 mg/dl (9-20); Calcium 9.0 mg/dl (8.4-10.2); Carbon Dioxide 31 mmol/L (22-30); Chloride 96 mmol/L (98-107); Glucose 118 mg/dl (70-99); Potassium 4.7 mmol/L (3.5-5.1); Sodium 130 mmol/L (135-145); Total Protein 6.7 g/dl (6.3-8.2); eGFR > 60.00
[2025-02-22 20:23] LABS: Troponin I < 0.012 ng/ml
[2025-02-22 21:29] VITALS: BP 208/90
[2025-02-22 21:41] VITALS: BMI 23.8
[2025-02-22 22:00] VITALS: BP 180/88
[2025-02-22 23:00] VITALS: BP 186/89
--- NOTE | 2025-02-22 23:10 | ED.GENMED ---
History of Present Illness
General
Chief Complaint: Abnormal Lab Value
Source: patient and spouse
Exam Limitations: none
Time Seen by Provider: 02/22/25 22:53
Nursing documentation reviewed up to this point in time: agreed with
History of Present Illness
History of Present Illness:
Note:
CHIEF COMPLAINT(S)
Low sodium level discovered on recent lab tests.
HISTORY OF PRESENT ILLNESS
The patient is an 80-year-old male with a recent history of hyponatremia and hypertension. The patients general practitioner noted a sodium level of 120 on a prior blood test earlier today taken at [facility], prompting a recommendation for
hospital evaluation. However, the sodium level from todays test was recorded at 131. The patient has experienced light-headedness and attributes it to both the hyponatremia and chronic high blood pressure.
The patient has a remote history of 'double pneumonia' leading to a four-day hospital admission in October, during which time his sodium levels were once again low. Post-hospitalization, his antihypertensive regimen was altered; hydrochlorothiazide
was removed, and losartan potassium was prescribed at a dose of 50 mg, which was later increased to 100 mg due to insufficient blood pressure control. Recently, an additional medication believed to be a calcium channel emil was added to his
regimen, though the patient is unsure of the name. His blood pressure was recorded as 186/89 today, which he reports is an improvement.
The patient uses four liters of oxygen in the afternoons and denies chest pain, shortness of breath, or fever.
MEDICATIONS
- Losartan potassium 100 mg.
- Additional unspecified calcium channel emil 25 mg (recently added).
PHYSICAL EXAM
General: Alert, no acute distress. 4 L nasal cannula
Skin: Warm, dry.
Head: Normocephalic, atraumatic.
Neck: Supple, trachea midline.
Eyes, Ears, Nose, Mouth, and Throat: Oral mucosa moist.
Cardiovascular: Heart sounds normal upon auscultation. Normal peripheral perfusion, no edema.
Respiratory: Respirations non-labored, lung sounds normal.
Gastrointestinal: Abdomen nondistended.
Back: Normal range of motion, normal alignment.
Musculoskeletal: Normal range of motion, normal strength.
Neurological: Alert and oriented to person, place, time, and situation. No focal neurological deficit observed.
Psychiatric: Cooperative, appropriate mood and affect.
PROBLEM LIST
Acute Problems:
- Hyponatremia
- Recent adjustment of antihypertensive regimen
Chronic Problems:
- Hypertension
PLAN
Monitor sodium levels and blood pressure closely. Allow time for the new antihypertensive medication to take effect before making further adjustments to the regimen to avoid hypotension. The patient advised to follow up with primary care for ongoing
management of hypertension and sodium levels.
DIFFERENTIAL DIAGNOSIS
The Differential Diagnosis includes, in no particular order and is not limited to:
1. Hyponatremia secondary to medication effect
2. Essential hypertension
3. Congestive heart failure (contributing to edema and/or hyponatremia)
4. Renal insufficiency
5. Pulmonary disease effects or complications
6. Secondary causes of hypertension (e.g., renal artery stenosis)
7. Syndrome of inappropriate antidiuretic hormone secretion (SIADH)
8. Hyperaldosteronism
9. Neurological condition contributing to dizziness
10. Drug-induced hypotension/hyponatremia
Disposition:
SUMMARY OF ENCOUNTER
The patient is an 80-year-old male who was advised to visit the emergency department after his primary care provider informed him of a low sodium level measured at 120. Upon evaluation in the emergency department, his sodium level was found to be
130. Although low, this level is consistent with previous results. The patient has no symptoms at present and expressed a desire to return home.
PLAN
Monitor sodium levels and ensure follow-up with primary care for ongoing management of hyponatremia.
INDEPENDENT REVIEW OF LABS AND INTERPRETATION OF TESTS
My independent review of sodium levels indicates a current value of 130, which, while low, is consistent with the patient�s previous sodium levels.
MEDICAL DECISION MAKING
-Complexity of Data Reviewed: Chronic conditions affecting care include hyponatremia and hypertension. Differential diagnoses considered include hyponatremia secondary to medication effect, essential hypertension, congestive heart failure, renal
insufficiency, pulmonary disease effects, secondary causes of hypertension, syndrome of inappropriate antidiuretic hormone secretion (SIADH), hyperaldosteronism, neurological condition contributing to dizziness, and drug-induced
hypotension/hyponatremia.
-Data:
Category 1
The sodium level of 130 was reviewed and is consistent with previous outpatient records.
-Risk:
Consideration of Admission/Observation: Escalation of care including admission/observation was considered given the complexity and risk of the patients presenting complaint and underlying comorbidities. However, ultimately I feel the patient is safe
for outpatient management with close follow-up. Reasoning: Work-up does not reveal any acute life/organ-threatening processes, patients symptoms absent upon reassessment, reexamination is reassuring, vitals are stable, patient agreeable with
discharge, reliable for follow-up.
DIAGNOSIS
Hyponatremia, unspecified (E87.1)
Essential (primary) hypertension (I10)
Past History
Past History
ED Past Medical History: CAD, COPD, GERD, HTN, LA and Other (Sleep apnea, frequent urination, prostatic hypertrophy, arthritis, impaired vision, skin cancer.)
ED Past Surgical History: Cardiac, Urological and Other (Abdominal surgery for Meckel's diverticulum in 1999 he cornea transport 2008 skin cancer left cheek and 2008, CABG March 2012)
Social History
Tobacco: Former smoker
Alcohol: Occasional
Drug: None
Personal:
Living: with family
Employment: Retired
Phy Exam
Physical Exam
Physical Exam:
,
Course
Orders/Labs/Results
Orders:
Orders
02/22/25 19:34
Electrocardiogram (*1) Urgent
Reason for Study: Chest Pain
Cardiac Monitoring- Treatment ONCE
EKG- Treatment ONCE
IV Insert/Care/Rem.- Treatment PRN
O2 Therapy [RESP] Urgent
Titrate/Wean O2 to maintain O2 sat greater than (%): 90
Special Instructions: Maintain sats >/=90%
Pulse Ox/spot Check [RESP] Urgent
Quantity: 1
Special Instructions: ON ROOM AIR
02/22/25 19:40
Complete Blood Count/With Diff Urgent
Comprehensive Metabolic Panel Urgent
Troponin I Urgent
Abnormal Lab Results
02/22/25
19:40
RBC 4.11 L 10^6/uL
(4.70-6.10)
Hgb 11.9 L g/dL
(13.0-18.0)
Hct 35.0 L %
(39.0-52.0)
Absolute Neuts (auto) 7.0 H 10^3/uL
(1.4-6.5)
Absolute Monos (auto) 0.7 H 10^3/uL
(0.1-0.6)
Sodium 130 L mmol/L
(135-145)
Chloride 96 L mmol/L
(98-107)
Carbon Dioxide 31 H mmol/L
(22-30)
Glucose 118 H mg/dl
(70-99)
02/22/25 19:40
02/22/25 19:40
Vital Signs
Initial and Last Documented VS:
Initial Vital Signs
Temp Pulse Resp BP Pulse Ox
98.4 F 81 18 139/94 95
02/22/25 19:31 02/22/25 19:31 02/22/25 19:31 02/22/25 19:31 02/22/25 19:31
Last Documented Vital Signs
Temp Pulse Resp BP Pulse Ox
98.4 F 76 21 167/89 95
02/22/25 19:31 02/22/25 23:21 02/22/25 23:15 02/22/25 23:21 02/22/25 23:21
*Pulse Oximetry
SaO2: 98
Nasal Cannula flow liters per minute: 4
Patient hypoxic: no
Comment: Patient's home O2
*Critical Care Note
Total Time (30-74mins, 75-104mins- exclusive of procedures): Not Applicable
ED Attending Note
-
Portions of this chart may have been created with voice recognition software.� Occasional wrong word or��sound alike� substitutions may have occurred due to the inherent limitations of voice recognition software.
Discharge Plan
Departure
Patient Disposition: Home (Routine Discharge)
Date of Disposition: 02/22/25
Time of Disposition: 23:13
Patient with high blood pressure during this ER visit?: No
Discharge Problem:
Hyponatremia
Instructions: Hyponatremia, BLOOD PRESSURE
Prescriptions:
No Action
metoprolol succinate 25 MG tablet extended release 24 hr
25 mg PO DAILY
pantoprazole 40 MG tablet,delayed release (DR/EC)
40 mg PO DAILY
albuterol sulfate 2.5 mg /3 mL (0.083 %) solution for nebulization
2.5 mg inhalation R BID
nitroglycerin 0.4 mg Tablet, Sublingual
0.4 mg SUBLINGUAL [id number] PRN (Reason: chest pain)
omega 9-tet-ebr-fish oil [Fish Oil] 1,000 mg (120 mg-180 mg) Capsule
1 cap PO QPM
aspirin 81 mg Tablet,Delayed Release (Dr/Ec)
81 mg PO DAILY Qty: 30 0RF
budesonide 0.5 mg/2 mL Suspension For Nebulization
0.5 mg inhalation R DAILY
atorvastatin 40 mg Tablet
40 mg PO DAILY
fluticasone propion-salmeterol 250-50 mcg/dose Blister With Device
1 inh INHALATION DAILY
therapeutic multivitamin Tablet
1 tab PO QPM
coenzyme Q10 [CoQ-10] 100 mg Capsule
100 mg PO QPM
alpha lipoic acid 100 mg Capsule
100 mg PO QPM
ProAir RespiClick 90 mcg/actuation Aerosol Powdr Breath Activated
2 inh INHALATION R Q4HPRN PRN (Reason: SOB)
Spiriva Respimat 1.25 mcg/actuation Mist
1 puff INHALATION R DAILY
quercetin 500 mg Capsule
500 mg PO QPM
Reservatrol
1 cap PO QPM
azithromycin 250 mg Tablet
250 mg PO MOWEFR
sodium chloride [NebuSal] 3 % Solution For Nebulization
4 ml INHALATION R BID
calcium carbonate 500 mg calcium (1,250 mg) Tablet
500 mg PO QPM
fluorometholone 0.1 % Drops,Suspension
1 drp BOTH EYES DAILY
bromelains 100 mg Tablet,Chewable
200 mg PO QPM
diphenhydramine-acetaminophen [Tylenol PM Extra Strength] 25-500 mg Tablet
1 tab PRN (Reason: insomnia)
prednisone 10 mg Tablet
See Taper PO DAILY Qty: 20 0RF
Taper: Prednisone DC Starting at 40 mg daily
30 mg Daily for 3 Days and 0 Hour
20 mg Daily for 3 Days and 0 Hour
10 mg Daily for 3 Days and 0 Hour
cefdinir 300 mg capsule
300 mg PO Q12H 7 Days Qty: 14 0RF
(DME) mucus clearing device Device
See Rx Instructions .Route Qty: 1 0RF
Rx Instructions:
As directed
losartan 50 mg tablet
50 mg PO DAILY 30 Days Qty: 30 0RF
Referrals:
Félix Anaya CRNP [Family Provider, Internal Medicine]
Activity Restrictions/Additional Instructions:
Your sodium was 130 today. Please have it rechecked in several days
Thank You for choosing [facility].
It was a pleasure meeting you and taking part in your care. We hope for your continued healing and wellness.
Please read discharge instructions in their entirety. However, they are for general education and may not describe your exact diagnosis at discharge. Information on your ER visit and medical conditions were discussed with you along with appropriate
follow up information...
If indicated, please take your medications as instructed and indicated on discharge paperwork.
Please schedule a follow up appointment as directed. Call to schedule an appointment
Please return to the emergency department with ANY change in, persisting, or worsening of symptoms. If any of your symptoms do not improve, or persist, or become more severe within 6-12 hours, please return to the emergency department for further
care.
Please return to the emergency department if you develop a headache, neck pain/stiffness, fever greater than 100.4F, chest pain, shortness of breath, persistent nausea, vomiting, slurred speech, difficulty walking, numbness/tingling, weakness, signs
of infection or any other symptoms that are worrisome to you.
If you have any questions or concerns please do not hesitate to call the Hospital at or E-mail me directly at [email or web address]
Interventions
Interventions:
*Risk Screen - Suicide Last Done: 02/22/25 19:31
*General Assessment Last Done: 02/22/25 21:42
*Neglect/Abuse Screening Last Done: 02/22/25 19:31
*ED- Fall Risk Assessment Last Done: 02/22/25 21:42
*ED COVID-19 Vaccine History Last Done: 02/22/25 21:42
*Nursing Disposition Last Done: 02/22/25 23:21
Discharge Date and Time
Discharge Date/Time: 02/22/25 23:32
Print Language: MALTESE
[2025-02-22 23:21] VITALS: BP 167/89
== END 2025-02-22 23:32 | disposition home or self-care (01) ==
LOC: EMR 19:26
PROVIDERS: Emergency Medicine; EMERGENCY PHYSICIAN Student in an Organized Health Care Education/Training Program; FAMILY PHYSICIAN Registered Nurse
DX: E87.1 Hypo-osmolality and hyponatremia (principal); I10 Essential (primary) hypertension; G47.30 Sleep apnea, unspecified; I25.10 Atherosclerotic heart disease of native coronary artery without angina pectoris; I25.2 Old myocardial infarction; Z79.899 Other long term (current) drug therapy; Z87.891 Personal history of nicotine dependence; Z95.1 Presence of aortocoronary bypass graft; Z99.81 Dependence on supplemental oxygen
CPT/HCPCS: 99284; 36415; 80048; 80053; 84484; 85025; 93005

== ENCOUNTER 2025-03-03 13:15 | Outpatient (RCR) | payer OTHER, SELFPAY | END 2025-03-03 23:59 | disposition home or self-care (01) | LOC: PURB 13:15 | PROVIDERS: ATTENDING PHYSICIAN Internal Medicine Critical Care Medicine | DX: J44.9 Chronic obstructive pulmonary disease, unspecified (principal); G47.30 Sleep apnea, unspecified; J47.9 Bronchiectasis, uncomplicated; J31.0 Chronic rhinitis; R91.8 Other nonspecific abnormal finding of lung field; R09.02 Hypoxemia; I27.20 Pulmonary hypertension, unspecified; Z87.891 Personal history of nicotine dependence | CPT/HCPCS: 94625 ==

== ENCOUNTER → 2025-03-16 17:30 | Outpatient (REF) | payer OTHER, SELFPAY | LOC: RCS 17:30 | PROVIDERS: ATTENDING PHYSICIAN Internal Medicine Critical Care Medicine; FAMILY PHYSICIAN Registered Nurse | DX: R09.02 Hypoxemia (principal) | CPT/HCPCS: 93306 ==

== ENCOUNTER 2025-03-31 13:15 | Outpatient (RCR) | payer OTHER, SELFPAY | END 2025-04-01 11:04 | disposition home or self-care (01) | LOC: PURB 13:15 | PROVIDERS: ATTENDING PHYSICIAN Internal Medicine Critical Care Medicine | DX: J44.9 Chronic obstructive pulmonary disease, unspecified (principal); J47.9 Bronchiectasis, uncomplicated; G47.30 Sleep apnea, unspecified; J31.0 Chronic rhinitis; R91.8 Other nonspecific abnormal finding of lung field; I27.20 Pulmonary hypertension, unspecified; R09.02 Hypoxemia; Z87.891 Personal history of nicotine dependence | CPT/HCPCS: 94625 ==

== ENCOUNTER 2025-05-03 13:15 | Outpatient (RCR) | payer OTHER, SELFPAY | END 2025-05-03 23:59 | disposition home or self-care (01) | LOC: PURB 13:15 | PROVIDERS: ATTENDING PHYSICIAN Internal Medicine Critical Care Medicine | DX: J44.9 Chronic obstructive pulmonary disease, unspecified (principal) | CPT/HCPCS: 94625 ==

== ENCOUNTER 2025-05-24 13:15 | Outpatient (RCR) | payer OTHER, SELFPAY | END 2025-05-25 10:57 | disposition home or self-care (01) | LOC: PURB 13:15 | PROVIDERS: ATTENDING PHYSICIAN Internal Medicine Critical Care Medicine | DX: J44.9 Chronic obstructive pulmonary disease, unspecified (principal) | CPT/HCPCS: 94625 ==

== ENCOUNTER → 2025-06-13 10:30 | Outpatient (REF) | payer OTHER, SELFPAY | LOC: HWRAD 10:30 | PROVIDERS: ATTENDING PHYSICIAN Nurse Practitioner Adult Health; FAMILY PHYSICIAN Registered Nurse | DX: J44.9 Chronic obstructive pulmonary disease, unspecified (principal); R91.8 Other nonspecific abnormal finding of lung field | CPT/HCPCS: 71250 ==